=== PATIENT | male | born 1940 | race African-American/Black ===

== ENCOUNTER 2016-11-18 00:27 | Inpatient (IN) | payer MEDICARE ==
--- NOTE | ~2016-11-18 | CN ---
Consultation Report [facility] [address] [place]. [address] NAME: KASHIF DUARTE : 38 STATUS : ADM IN PAT#: [id number] AGE: 76 ADM/REG DATE : 11/18/16 MR#: [id number] REPORT SERV DATE: 11/21/16 DICTATED BY: JM ARANA DATE: 11/20/16 REPORT STATUS : Draft TRANSCRIBED BY: MODL DATE: 11/20/16 INFECTIOUS DISEASE CONSULT DATE OF CONSULTATION: 11/20/2016 REFERRING PHYSICIAN: Neurology and also Jeovanny Poon DO REASON FOR REFERRAL: Evaluation and treatment of meningitis. HISTORY OF PRESENT ILLNESS: The patient is a 76-year-old male. He has history of hypertension, dementia. He came in on 11/18/2016, with several weeks of changing behavior and worrisome observations by his family. He lives alone and has not sought out any help, but I noticed that he seemed to have more trouble with his gait. He was less active, was eating less, losing weight. He passed out while visiting someone with an apparent syncopal episode. He had gastrointestinal symptoms that made him very sick with diarrhea and nausea in late October, so he was brought in. He appeared to be nontoxic. His temperature was normal. White blood cell count was normal. Workup was then ensued directed by Neurology. He has had normal imaging of his brain including MRI or not normal but nothing acute but he does have changes of atrophy as would be expected at his age. Today, a lumbar puncture was performed and it showed 26 red cells, 269 white cells, 49% segs, 34% lymphocytes, 17% monos, glucose of 15 with a serum at same time in the high 100s and a protein is 64.8. Special stains have been ordered and are pending. The patient at present states he feels fine, does not feel sick at all. He has no headache. He has had no acute deterioration in neurological function in any way since he arrived. He is a [place] of [place], [place] but he has lived in [place] for many years. 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 He has no animals or pets. He is not around livestock. He has not traveled outside this area and has not been around anyone who has been sick and has not eaten any foods that he was suspicious of being bad. He does eat sandwiches including those made with cold cuts and cheese from local restaurants and markets. PAST MEDICAL HISTORY: Otherwise unremarkable. MEDICATIONS: He is on no antimicrobials. ALLERGIES: NO KNOWN ANTIMICROBIAL ALLERGIES. SOCIAL HISTORY: He is retired, single, nonsmoker. No history of alcohol or substance abuse. FAMILY HISTORY: Noncontributory. PHYSICAL EXAMINATION: GENERAL: A nontoxic, elderly male, in no acute distress. He is alert and oriented x3. VITAL SIGNS: Temperature is 98.1, pulse 70, respirations 16, blood pressure 148/70, and Consultation Report [address] [address] NAME: KASHIF DUARTE : 38 STATUS : ADM IN [facility]#: [id number] AGE: 76 ADM/REG DATE : 11/18/16 MR#: [id number] REPORT SERV DATE: 11/21/16 DICTATED BY: JM ARANA DATE: 11/20/16 REPORT STATUS : Draft TRANSCRIBED BY: HILARIO DATE: 11/20/16 weight 86 kg. HEENT: Sclerae are clear. Pupils are equal, round, and reactive to light and accommodation. There are no oropharyngeal lesions. NECK: Supple without meningeal signs or lymphadenopathy. LUNGS: Clear. HEART: Regular rate and rhythm. ABDOMEN: Soft, nontender. Positive bowel sounds. No masses or hepatosplenomegaly. EXTREMITIES: Without clubbing, cyanosis, or edema. No swollen, red, or hot joints. SKIN: No skin lesions or rashes. LABORATORY DATA: White count 5.4, hematocrit 34, platelets 176, unremarkable differential on the white blood cell count. Sedimentation rate 16. BUN and creatinine 15 and 1.02. Liver function tests shortly after admission within normal limits. 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 It is possible that this could still be listeria. I would be more concerned about an indolent cause like cryptococcus, syphilis, tuberculosis etc. He has no obvious exposures in the past to the latter. RECOMMENDATIONS: 1. We will hold antibiotics for the moment. We will obtain the results of Gram stain, Angela ink, AFB within the next 1-2 hours, those will be called to me. 2. If any ink is positive, we would initiate lipid complex amphotericin. If it is negative, we would probably treat empirically for listeria with ampicillin. 3. Finally, I will follow the patient with you. I appreciate very much your consulting on this patient. LISA Jm Arana M.D. / [id number] CC: Jeovanny Poon,
--- NOTE | ~2016-11-18 | IDS ---
Interim Discharge Summary [facility] [address] [place]. 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 Patient says he wanted to see the security compliance engineer after I offered. OBJECTIVE: VITAL SIGNS: Blood pressure 120/50, saturating 96% on room air, respirations 18, pulse 82, temp 99.5. GENERAL: No acute distress. HEENT: PERRLA. No scleral icterus. CARDIOVASCULAR: Regular rate and rhythm. No murmur. RESPIRATORY: Decreased breath sounds, bibasilar. Otherwise, no wheezes, no crackles. ABDOMEN: Nontender, nondistended. Positive bowel sounds. EXTREMITIES: No edema. No ecchymosis. NEURO: GCS 15. A and O x4/4. PSYCH: Anxious, tearful. LABORATORY DATA: Today, he has a white count of 7.6 from 5.4; hemoglobin 10.7 from 11; and platelets 152,000 from 137 from 152. Sodium 140, potassium 3.5, chloride 109, bicarb 20, creatinine 1.31 from 1.54 from 1.20. Glucose 103. Mag 1.4. negative. RPR negative. Cryptococcal antigen positive titer 1:160. Blood cultures, no growth to date. Strep pneumo. CSF had over 250 white blood cells and cerebrospinal fluid. INTERIM DISCHARGE SUMMARY ASSESSMENT AND PLAN: 76-year-old male with known history of hypertension, dementia, came in on 11/18/2016, with several weeks of change in behavior and worrisome observation, visited someone who apparently had gastrointestinal symptoms. The patient had a lumbar puncture after an MRI that showed possible multiple sclerosis-like changes resulting in a lumbar puncture for oligoclonal banding rule out, and surprisingly, had 269 white blood cells, 49% segs, 34% lymphocytes, glucose of 15, high protein of 64.8. His Angela ink was negative, but his cryptococcal antigen was positive. As a result, he was started on amphotericin with flucytosine. Likely, he will need two to six weeks of induction of ampho and then possible with concomitant flucytosine; defer to Infectious Disease if they want to do p.o. Diflucan. Afterwards, we would defer to their management. The patient did not have a stroke. His issues with vertigo and ataxia have improved. Could not receive gadolinium contrast MRI initially because of his acute kidney injury. He has end-stage renal disease in his family, likely it is just chronic kidney disease. While he is on amphotericin, we will continue his low rate lactated Ringer's. The patient is a bit tearful with burden of cryptococcal meningitis. As a result, we will have security compliance engineer evaluate the patient for possible treatment of acute stress disorder that hopefully will resolve. If it does not, consider possible psychiatric referral. We will get a PICC. Hopefully, can be discharged soon with a plan for antibiotics per Infectious Disease. Interim Discharge Summary [address] [address] NAME: KASHIF DUARTE : 38 STATUS : ADM IN [facility]#: [id number] AGE: 76 ADM/REG DATE : 11/18/16 MR#: [id number] REPORT SERV DATE: 11/25/16 DICTATED BY: EAL PENNY DATE: 11/25/16 REPORT STATUS : Draft TRANSCRIBED BY: HILARIO DATE: 11/25/16 JAMIE/HILARIO Ela Penny DO / [id number]
--- NOTE | ~2016-11-18 | CN ---
Consultation Report [facility] [address] [place]. [address] NAME: KASHIF GANT : 38 STATUS : ADM IN PAT#: [id number] AGE: 76 ADM/REG DATE : 11/18/16 MR#: [id number] REPORT SERV DATE: 12/04/16 DICTATED BY: SEFERINO NAVARRO DATE: 12/04/16 REPORT STATUS : Draft TRANSCRIBED BY: HILARIO DATE: 12/04/16 DATE OF CONSULTATION: 11/21/2016 REASON FOR CONSULTATION: Coincidental finding of right renal mass. HISTORY OF PRESENT ILLNESS: Mr. Gant is a 76-year-old black gentleman, who was admitted to the hospitalist service with an infectious process. Workup, which included Infectious Disease consult, made the diagnosis of fungal meningitis, for which he will be treated. The patient had a markedly elevated white count, but actually on my interview with him, he looked surprisingly well and treatment was to be undertaken directed at the organism. He had a CT and ultrasound, which showed a small right renal mass, about 2.7 cm, and this was confirmed with a noncontrast CT scan. I have reviewed the scan as well as the ultrasound with Radiology and concur about the presence of the small mass on the right side, the left side is unremarkable. PHYSICAL EXAMINATION: GENERAL: This is a pleasant black gentleman. Alert and oriented, in no distress. CHEST: Clear. ABDOMEN: Negative for tenderness. No masses. No distention. BACK: Negative for CVA tenderness. EXTREMITIES: Unremarkable. GENITALIA: Normal uncircumcised penis, testes, and perineum. RECTAL: Deferred until followup at the office. IMPRESSION: Renal neoplasm, unknown type. PLAN: I impressed upon Mr. Gant, who is anticipating dismissal, that this growth on his kidney could well be a tumor which could be malignant ("cancer") and he did need a followup as soon as reasonably possible. He agreed and did appear to understand what I was telling him. In fact, I did ask that he repeat so that I was convinced he did understand and the need for followup. Thank you very much, we will be available p.r.n. this hospitalization. MS/HILARIO Seferino Navarro M.D. / [id number] CC: Jeovanny Poon DO
--- NOTE | ~2016-11-18 | DS ---
Discharge Summary [facility] [address] [place]. [address] NAME: KASHIF DUARTE : 38 STATUS : DIS IN PAT#: [id number] AGE: 76 ADM/REG DATE : 11/18/16 MR#: [id number] REPORT SERV DATE: 12/05/16 DICTATED BY: ELA PENNY DATE: 12/04/16 REPORT STATUS : Draft TRANSCRIBED BY: MODL DATE: 12/04/16 ADMISSION DATE: 11/18/2016 DISCHARGE DATE: 12/04/2016 HOSPITAL COURSE: A 76-year-old -Turkish male with known history of hypertension, dementia. He came in on 11/18/2016 with several weeks of worrisome behavior as the patient had increased ataxia, vertiginous symptoms, was recently prior to admission visited by someone who had a GI-related symptoms of gastroenteritis. The patient as a result was worked up for possible posterior circulatory stroke with MRI without contrast given the KATY showed eiff-vm-terojlmc atrophy, moderate amount of deep white matter periventricular changes, some signal change around the periventricular lining could overlap with demyelinating process such as long-standing multiple sclerosis. As a result, lumbar puncture was done to rule out an oligoclonal band. He had an opening pressure 14 cm, closing of 9. As a result, the patient had over 260 white blood cells. He eventually had a cryptococcal antigen positivity, cryptococcal meningitis and seen by Dr. Good. He started the patient on IV amphotericin with oral flucytosine. He has completed induction therapy. He will be discharged to follow Dr. Good in month. He will be discharged on Diflucan 400 mg once a day. The patient during the course required a PICC line, which will be discontinued prior to discharge. The patient also had extension edger evaluation as the patient was mildly tearful regarding this possible acute stress disorder. The patient was also seen by Physical Therapy just prior to going home. Will need Home Health for medication assistance. He has some hypokalemia persistently and is placed on scheduled KCl, could have had iatrogenic renal tubular acidosis, would repeat as an outpatient a BMP, and we will just place on KCl 20 mEq p.o. daily. Possibly amphotericin and flucytosine may have caused potassium wasting syndrome, would repeat as an outpatient, as stated this patient was not on KCl coming into the hospital. Consults for Infectious Disease and Neurology and does not appear to have any multiple sclerosis, has symptoms reoccurred despite full treatment of Cryptococcal meningitis. We would repeat MRI. The patient discharge creatinine is 1.17. 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 If were to be chronic kidney disease III as an outpatient, consider referral to Nephrology. All questions were answered. It took well over 30 minutes to do. JAMIE/HILARIO Ela Penny DO / [id number] CC: Ela Penny DO
--- NOTE | ~2016-11-18 | CN ---
Consultation Report [facility] [address] [place]. [address] NAME: KASHIF DUARTE : 38 STATUS : ADM Tenisha PAT#: [id number] AGE: 76 ADM/REG DATE : 11/18/16 MR#: [id number] REPORT SERV DATE: 11/18/16 DICTATED BY: ZENA MAO DATE: 11/18/16 REPORT STATUS : Draft TRANSCRIBED BY: MODL DATE: 11/18/16 NEUROLOGY CONSULTATION DATE OF CONSULTATION: 11/18/2016 REASON FOR CONSULTATION: Acute encephalopathy and TIA. HOSPITALIST: Dr. Rafael Bhatti. HISTORY OF PRESENT ILLNESS: The patient is a 76-year-old male, who came into the hospital with a history of weight loss approximately 15 pounds over the last couple of months. His daughter and niece state that he has just not had an appetite and has not been eating. It has been reported that he is having difficulty swallowing. He also has had vertiginous symptoms, ataxia, dysphagia, and diplopia. In October, his brother . He took it rather hard and immediately after his brother , he came down with a "GI bug". He went to his PCP and he was placed on some sort of antiviral medication and put on a blood pressure medication. Two weeks after that, he went to [facility] where he was diagnosed with vertigo. One week ago, he was at a restaurant and he passed out. Yesterday his niece noticed that he was having trouble getting out of a chair. He almost fell. PAST MEDICAL HISTORY: Dementia and hypertension. PAST SURGICAL HISTORY: Cholecystectomy. MEDICATIONS: Home medication list consists of Coreg 25 mg b.i.d.; HCTZ 12.5 mg q.a.m.; and Antivert 25 mg t.i.d. p.r.n. ALLERGIES: NONE. SOCIAL HISTORY: The patient is . He lives alone. He has four children. 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 He does not smoke, but chews tobacco. Does not use alcohol or illicit drugs. FAMILY HISTORY: His mother from end-stage renal disease. She was diabetic. There is no history on his father. He has 4 sisters and 5 brothers. REVIEW OF SYSTEMS: See HPI. PHYSICAL EXAMINATION: GENERAL/VITAL SIGNS: The patient is a 76-year-old male, who stands 5 feet 8 inches tall and weighs 190 pounds. He is afebrile. Heart rate 61, respiratory rate 18, and O2 saturations on room air 95%, blood pressure 109/57. NEUROLOGIC: The patient is alert. He is oriented to person, place, and time, not Consultation Report [address] [place]. [address] NAME: KASHIF DUARTE : 38 STATUS : ADM Tenisha PAT#: [id number] AGE: 76 ADM/REG DATE : 11/18/16 MR#: [id number] REPORT SERV DATE: 11/18/16 DICTATED BY: ZENA MAO DATE: 11/18/16 REPORT STATUS : Draft TRANSCRIBED BY: HILARIO DATE: 11/18/16 necessarily situation. He is slightly dysarthric. He is able to swallow his lunch without any difficulty. He can follow simple commands. Pupils are 3 mm PERRLA. Cranial nerves are intact. He can move all extremities x4. There is no tremor. No dysmetria. He does have ataxia with xolygf-le-sbmq bilaterally. No pronator drift. Upper extremity strength is 5/5. DTRs in the upper extremities 1+. Lower extremity strength is 4/5. DTRs 2+. Downgoing toes. No decreased sensation in the lower extremities. Vibratory position and temperature sense is intact. He can get out of the bed without any assistance; however, he is ataxic. Romberg untestable. NECK: No carotid bruits, JVD, or thyromegaly. CHEST: Lung sounds are clear. CARDIAC: Regular rate and rhythm. DATA: CBC normal. BMP relatively normal except potassium 3.4, creatinine 1.35, and glucose is 127. TSH normal A1c 5.7. NIH stroke scale is 3. ASSESSMENT/PLAN: 1. Possible stroke as evidenced by ataxia. MRI of the brain and C-spine will be performed without gadolinium and MRA of the head and neck with gadolinium will be done. Echocardiogram with bubble study. PT and OT have been ordered. He will be educated on reducing risk factors. He will be placed on aspirin 325 mg daily and Lipitor 40 mg at bedtime. Case Management has been consulted on rehab placement. 2. Dementia. The patient will be scheduled for an outpatient Neurology office visit to be evaluated for dementia. Thank you again for including us in consultation. We will follow with you. OMAIRAJ/MIGUELL Zena Mao, [facility]- / [id number] CC: Manpreet Osuna Jr, MD Fred Duhon, M.D. Ryan Scott McNamara, M.D.
--- NOTE | ~2016-11-18 | HP ---
History And Physical [facility] [id number] [facility] [place]. [address] NAME: KASHIF DUARTE : 38 STATUS : ADM Tenisha PAT#: [id number] AGE: 76 ADM/REG DATE : 11/18/16 MR#: [id number] REPORT SERV DATE: 11/18/16 DICTATED BY: KATHY KWON DATE: 11/18/16 REPORT STATUS : Draft TRANSCRIBED BY: MODL DATE: 11/18/16 DATE OF ADMISSION: 11/18/2016 CHIEF COMPLAINT: A 76-year-old male presenting with difficulty swallowing, double vision, vertigo, gait disturbance, and falls. HISTORY OF PRESENTING ILLNESS: The patient's history was obtained through an interview with the patient, his daughter, and niece. Really, the patient has been having symptoms on and off for months, but he is one not to complain much and is worried about apparently being a nuisance to his family. He has kept most of his symptoms to himself. But over the last month, it has been very clear that he is having vertigo-like symptoms off and on with lightheadedness and a sensation as if the room is spinning and occasional slight nausea. He finally went to see his primary care physician, Dr. Darren Low recently and it has been noted that he has lost about 15 pounds in the last few months. Then six days ago, he had a syncopal episode that was quite alarming to the family. Over this last week, he has been on meclizine for vertigo symptoms, but without much help. He has had a very poor appetite. He has had occasional constipation. For several weeks, he seems to be stumbling about with gait disturbance. One of the main complaints that he has is difficulty swallowing. It has been going on for at least three or four weeks. He often can eat soft foods without difficulty or liquids without difficulty, but anything with substance seems to get caught up in his throat, but it is not painful, He has also had occasional double vision apparently, but no blurry vision. No dysarthria. No hemiparesis. No headache. No chest pain, no abdominal pain, no shortness of breath. REVIEW OF SYSTEMS: Otherwise, a 14-point review of systems was obtained and was negative. PAST MEDICAL HISTORY: 1. Hypertension. 2. Dementia, but has not been placed on any medications for this. PAST SURGICAL HISTORY: Cholecystectomy. History And Physical [address] [address] NAME: KASHIF DUARTE : 38 STATUS : ADM Tenisha PAT#: [id number] AGE: 76 ADM/REG DATE : 11/18/16 MR#: [id number] REPORT SERV DATE: 11/18/16 DICTATED BY: KATHY KWON DATE: 11/18/16 REPORT STATUS : Draft TRANSCRIBED BY: HILARIO DATE: 11/18/16 ALLERGIES: NO KNOWN DRUG ALLERGIES. SOCIAL HISTORY: No tobacco abuse. No alcohol abuse. Lives in [place], [place], alone. He is . He used to chew tobacco, but has quit. 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 FAMILY HISTORY: Significant for heart disease. Mother with diabetes and end-stage renal disease, on dialysis. CURRENT MEDICATIONS: Include hydrochlorothiazide 12.5 mg p.o. daily, Coreg 25 mg p.o. b.i.d., meclizine p.r.n. PHYSICAL EXAMINATION: VITAL SIGNS: Temperature 98.3, pulse 97, blood pressure 133/83, respiratory rate 18, O2 saturation 98% on room air. GENERAL: A pleasant, cooperative male, in no evidence of distress. NEUROLOGICAL: Cranial nerves 2 through 12 are intact and symmetrical. No nystagmus. The patient has 5/5 strength in upper and lower extremities that is symmetrical. HEENT: Pupils equal, round, and reactive to light. No conjunctival pallor. No scleral icterus. Nares are patent. Oropharynx is clear of obstruction. Dry mucous membranes. NECK: Trachea midline. No thyromegaly. LYMPH: No cervical lymphadenopathy. No supraclavicular lymphadenopathy. RESPIRATORY: Clear to auscultation at bases. No wheezes, no rales, no rhonchi. Normal respiratory effort. CARDIOVASCULAR: Regular rate and rhythm. No murmurs, rubs, or gallops. No extremity edema is appreciated. ABDOMEN: Soft, nontender, nondistended. Normal bowel sounds auscultated throughout. No hepatosplenomegaly. DERMATOLOGICAL: Warm and dry extremities. No pallor. No cyanosis. PSYCHIATRIC: Normal affect. Good mood. Alert and oriented x3. LABORATORY DATA: White blood cell count 6.5, hemoglobin 14, hematocrit 39, platelets 224. Sodium 128, potassium 3.3, chloride 90, bicarb 22, BUN 31, creatinine 1.63, glucose 149, troponin negative, INR 1.2. Liver enzymes within normal limits. Urinalysis negative for infection. STUDIES: 1. Chest CT scan of the brain without contrast shows no acute intracranial process. 2. EKG by my own evaluation shows sinus rhythm, inferior Q-waves. 3. An x-ray of the cervical spine and chest x-ray were reported as negative. ASSESSMENT AND PLAN: 1. Gait disturbance, dysphagia, double vision, and vertigo. We will admit for a transient ischemic attack and stroke evaluation. Place on aspirin. Negative CT scan of the brain was noted. Check an MRI of the brain. Check carotid ultrasound. Check an echocardiogram. Check telemetry. Check fasting lipid panel. Obtain Neurology consult. History And Physical [address] [address] NAME: KASHIF DUARTE : 38 STATUS : ADM Tenisha PAT#: [id number] AGE: 76 ADM/REG DATE : 11/18/16 MR#: [id number] REPORT SERV DATE: 11/18/16 DICTATED BY: KATHY KWON DATE: 11/18/16 REPORT STATUS : Draft TRANSCRIBED BY: HILARIO DATE: 11/18/16 2. Acute kidney injury. Place on IV fluids. Hold hydrochlorothiazide. 3. Dementia. KPL/MODL Kathy Kwon M.D. / [id number] CC: Marin Johnson M.D.
--- NOTE | ~2016-11-18 | IDS ---
Interim Discharge Summary [facility] [address] [place]. [address] NAME: KASHIF DUARTE : 38 STATUS : ADM IN PAT#: [id number] AGE: 76 ADM/REG DATE : 11/18/16 MR#: [id number] REPORT SERV DATE: 12/02/16 DICTATED BY: ARTHUR SALEH DATE: 12/02/16 REPORT STATUS : Draft TRANSCRIBED BY: MODL DATE: 12/02/16 ADMISSION DATE: 11/18/2016 DISCHARGE DATE: Please see admission H and P from Dr. Francis Senior on 11/18/2016, and interim discharge summary from Dr. Jeovanny Poon on 11/25/2016. REASON FOR ADMISSION: This is a 76-year-old male, who presented with difficulty swallowing, double vision, vertigo, gait disturbance, and falls. INTERIM DISCHARGE DIAGNOSES: 1. Cryptococcal meningitis. Etiology unclear. 2. Possible MS. 3. Dementia. 4. Electrolyte abnormalities. 5. Acute kidney injury on chronic kidney disease. 6. Anemia. 7. Hypertension. HOSPITAL COURSE: I took over the patient's care on 11/26/2016. The patient has not had any status changes over the week other than some electrolyte abnormalities associated with his amphotericin B infusion. He is here at the hospital receiving a 2-week course of amphotericin B and flucytosine for his cryptococcal meningitis. He is now on day 13 of 14 and should be able to discharge either late Friday12/03/2016, or early Friday12/04/2016. Potassium has been low at times this week. We have been replacing per electrolyte protocol. Currently his potassium this morning was 3.2, and it has again been replaced per protocol. CURRENT MEDICATIONS: 1. Amphotericin B 50 mg IV daily. 2. Atorvastatin 40 mg p.o. at bedtime. 3. Carvedilol 12.5 mg p.o. b.i.d. 4. Flucytosine 2000 mg p.o. q.6 hours. 5. Mag-Ox 800 mg p.o. t.i.d. 6. Potassium chloride 20 mEq p.o. b.i.d. 7. Sodium bicarb 1300 mg p.o. b.i.d. 8. Hydralazine 25 mg p.o. t.i.d. CURRENT PLAN: The patient is to complete his amphotericin B infusion which will be sometime tomorrow and then the patient to discharge home after that. EDUARDO/HILARIO Arthur Ocampo Interim Discharge Summary [address] [place]. [address] NAME: KASHIF DUARTE : 38 STATUS : ADM IN PAT#: [id number] AGE: 76 ADM/REG DATE : 11/18/16 MR#: [id number] REPORT SERV DATE: 12/02/16 DICTATED BY: ARTHUR SALEH DATE: 12/02/16 REPORT STATUS : Draft TRANSCRIBED BY: HILARIO DATE: 12/02/16 KIRA Saleh / [id number] CC: Marin Johnson DO Mark Anderson, M.D. Louann L. Johnson, [facility]
[2016-11-18] MEDS ORDERED: MICROZIDE PO (00:53)
[2016-11-18] MEDS ORDERED: MCZ25 PO (00:54)
[2016-11-18] MEDS ORDERED: COREG25 PO (00:58)
[2016-11-18 06:21] LABS: BASOPHILS 0.3 %; BASOPHILS ABSOLUTE 0.02 10/3/uL (0.0-0.16); EOSINOPHILS 4.4 %; EOSINOPHILS ABSOLUTE 0.25 10/3/uL (0.0-0.53); HEMATOCRIT 34.4 % (40.0-51.0); HEMOGLOBIN 12.5 g/dL (13.6-17.8); IMMATURE GRANULOCYTES 0.2 %; IMMATURE GRANULOCYTES ABSOLUTE 0.01 10/3/uL (0.0-0.11); LYMPHOCYTES 22.5 %; LYMPHOCYTES ABSOLUTE 1.29 10/3/uL (0.67-4.30); MEAN CORPUS HGB CONC 36.3 g/dL (32.0-36.0); MEAN CORPUSCULAR HEMOGLOB 30.8 pg (26.0-34.0); MEAN CORPUSCULAR VOLUME 84.7 fL (80-100); MEAN PLATELET VOLUME 9.2 fL (9.2-13.0); MONOCYTES ABSOLUTE 0.69 10/3/uL (0.21-1.20); NEUTROPHILS 60.6 %; NEUTROPHILS ABSOLUTE 3.47 10/3/uL (2.02-8.40); PLATELET COUNT 204 10/3/uL (150-400); RBC DISTRIBUTION WIDTH 12.6 % (12.0-16.0); RED CELL COUNT 4.06 10/6/uL (4.7-6.1); WHITE BLOOD CELLS 5.7 10/3/uL (4.5-10.5)
[2016-11-18 06:29] LABS: A/G RATIO 1.2 (0.7-1.9); ALBUMIN 3.6 G/DL (3.5-5.0); ALKALINE PHOSPHATASE 48 U/L (45-117); BUN (BLOOD UREA NITROGEN) 25 MG/DL (6-23); CALCIUM, SERUM 8.9 MG/DL (8.5-10.4); CHLORIDE, SERUM 101 MMOL/L (96-112); CHOL/HDL RATIO(NOT ORDER) 2.8 (0-5); CHOLESTEROL 113 MG/DL (< 200); CK-MB 0.7 NG/ML; CO2 (CARBON DIOXIDE) 25 MMOL/L (24-34); CPK 83 U/L (0-200); CREATININE 1.35 MG/DL (0.70-1.30); GFR AFRICAN AMERICAN 58 ML/MIN (>=60); GFR NON AFRICAN AMERICAN 50 ML/MIN (>=60); GLUCOSE, SERUM 127 MG/DL (60-99); HDL CHOLESTEROL 40 MG/DL (> 39); LDL CHOLESTEROL 58 MG/DL (< 130); MANUAL DIFF NO %; NON-HDL CHOLESTEROL 73 MG/DL (< 160); POTASSIUM, SERUM 3.4 MMOL/L (3.5-5.3); SGOT(AST) 12 U/L (5-40); SGPT(ALT) 23 U/L (5-65); SODIUM, SERUM 137 MMOL/L (135-148); TOTAL PROTEIN 6.6 G/DL (6.0-8.5); TRIGLYCERIDE 75 MG/DL (< 150); TROPONIN I <0.02 NG/ML (<0.05)
[2016-11-18 07:07] LABS: B NATRIURETIC PEPTIDE (BNP) 20.4 PG/ML (< 100.0)
[2016-11-18 07:58] LABS: GLYCOHEMOGLOBIN (HbA1c) 5.7 % (4.7-6.1)
[2016-11-19 06:14] LABS: ALBUMIN 3.3 G/DL (3.5-5.0); ALKALINE PHOSPHATASE 46 U/L (45-117); BUN (BLOOD UREA NITROGEN) 19 MG/DL (6-23); CALCIUM, SERUM 8.6 MG/DL (8.5-10.4); CHLORIDE, SERUM 104 MMOL/L (96-112); CO2 (CARBON DIOXIDE) 23 MMOL/L (24-34); CREATININE 1.15 MG/DL (0.70-1.30); DIRECT BILIRUBIN 0.2 MG/DL (0.0-0.4); FOLATE 15.4 NG/ML (>5.2); GFR AFRICAN AMERICAN 70 ML/MIN (>=60); GFR NON AFRICAN AMERICAN 61 ML/MIN (>=60); GLUCOSE, SERUM 98 MG/DL (60-99); INDIRECT BILIRUBIN(NOT ORDER) 0.7 MG/DL (0.1-0.9); POTASSIUM, SERUM 3.4 MMOL/L (3.5-5.3); SGOT(AST) 10 U/L (5-40); SGPT(ALT) 18 U/L (5-65); SODIUM, SERUM 137 MMOL/L (135-148); TOTAL BILIRUBIN 0.9 MG/DL (0-1.2); TOTAL PROTEIN 6.2 G/DL (6.0-8.5)
[2016-11-20 09:51] LABS: BASOPHILS 0.6 %; BASOPHILS ABSOLUTE 0.03 10/3/uL (0.0-0.16); EOSINOPHILS 5.8 %; EOSINOPHILS ABSOLUTE 0.31 10/3/uL (0.0-0.53); HEMOGLOBIN 12.2 g/dL (13.6-17.8); IMMATURE GRANULOCYTES 0.2 %; IMMATURE GRANULOCYTES ABSOLUTE 0.01 10/3/uL (0.0-0.11); LYMPHOCYTES ABSOLUTE 1.34 10/3/uL (0.67-4.30); MEAN CORPUS HGB CONC 35.9 g/dL (32.0-36.0); MEAN CORPUSCULAR HEMOGLOB 30.5 pg (26.0-34.0); MONOCYTES 6.7 %; MONOCYTES ABSOLUTE 0.36 10/3/uL (0.21-1.20); NEUTROPHILS 61.7 %; NEUTROPHILS ABSOLUTE 3.32 10/3/uL (2.02-8.40); PLATELET COUNT 176 10/3/uL (150-400); RBC DISTRIBUTION WIDTH 12.4 % (12.0-16.0); WHITE BLOOD CELLS 5.4 10/3/uL (4.5-10.5)
[2016-11-20 09:54] LABS: INTERNATIONAL NORMAL RATI 1.3 UNITS (-); MANUAL DIFF NO %; PROTIME (NOT ORD) 16.1 SEC (12.0-14.5)
[2016-11-20 09:55] LABS: PARTIAL THROMBO TIME 32.5 SEC (22.5-37.2)
[2016-11-20 10:01] LABS: CHLORIDE, SERUM 103 MMOL/L (96-112); CO2 (CARBON DIOXIDE) 25 MMOL/L (24-34); CREATININE 1.02 MG/DL (0.70-1.30); GFR AFRICAN AMERICAN 81 ML/MIN (>=60); GFR NON AFRICAN AMERICAN 70 ML/MIN (>=60); PHOSPHORUS, SERUM 2.6 MG/DL (2.5-4.5); POTASSIUM, SERUM 3.9 MMOL/L (3.5-5.3); SODIUM, SERUM 138 MMOL/L (135-148)
[2016-11-20 10:03] LABS: BUN (BLOOD UREA NITROGEN) 15 MG/DL (6-23)
[2016-11-20 10:04] LABS: C-REACTIVE PROTEIN 2.9 MG/L (<8.0); GLUCOSE, SERUM 123 MG/DL (60-99); RHEUMATOID FACTOR QUANT 10 IU/ML (0-15)
[2016-11-20 10:35] LABS: SED RATE 16 MM/HR (0-15)
[2016-11-20 11:39] LABS: GLUCOSE CSF 15 MG/DL (45-70); TOTAL PROTEIN, CSF 64.8 MG/DL (15-45)
[2016-11-20 12:07] LABS: CSF APPEARANCE (NOT ORD) CLEAR (CLEAR); CSF BASO 0 % (NO REF RANGE); CSF COLOR (NOT ORD) COLORLESS (COLORLESS); CSF EOS 0 % (0-1); CSF LYMPH (NOT ORD) 34 % (28-96); CSF MONO 17 % (16-56); CSF RBC (NOT ORD) 26 MM3 (NO REFERENCE); CSF SEGS (NOT ORD) 49 % (0-7); CSF WBC (NOT ORD) 269 /uL (0-10); CSF XANTHROCHROMIA NEG (NEG)
[2016-11-20 12:28] LABS: ANA TITER <1:40 TITER
[2016-11-20 16:45] LABS: PROCALCITONIN < 0.05 ng/mL (<0.5)
[2016-11-20 17:42] LABS: C-REACTIVE PROTEIN < 2.9 MG/L (<8.0)
[2016-11-21 13:15] LABS: ANTI SS-A NEGATIVE (NEGATIVE); ANTI SS-B NEGATIVE (NEGATIVE)
[2016-11-21 14:23] LABS: BASOPHILS 0.6 %; BASOPHILS ABSOLUTE 0.03 10/3/uL (0.0-0.16); EOSINOPHILS 4.9 %; EOSINOPHILS ABSOLUTE 0.26 10/3/uL (0.0-0.53); HEMATOCRIT 33.5 % (40.0-51.0); HEMOGLOBIN 11.9 g/dL (13.6-17.8); IMMATURE GRANULOCYTES 0.6 %; IMMATURE GRANULOCYTES ABSOLUTE 0.03 10/3/uL (0.0-0.11); LYMPHOCYTES 11.5 %; LYMPHOCYTES ABSOLUTE 0.61 10/3/uL (0.67-4.30); MEAN CORPUS HGB CONC 35.5 g/dL (32.0-36.0); MEAN CORPUSCULAR HEMOGLOB 30.6 pg (26.0-34.0); MEAN CORPUSCULAR VOLUME 86.1 fL (80-100); MEAN PLATELET VOLUME 9.4 fL (9.2-13.0); MONOCYTES 7.1 %; MONOCYTES ABSOLUTE 0.38 10/3/uL (0.21-1.20); NEUTROPHILS 75.3 %; NEUTROPHILS ABSOLUTE 4.01 10/3/uL (2.02-8.40); PLATELET COUNT 163 10/3/uL (150-400); RBC DISTRIBUTION WIDTH 12.8 % (12.0-16.0); RED CELL COUNT 3.89 10/6/uL (4.7-6.1); WHITE BLOOD CELLS 5.3 10/3/uL (4.5-10.5)
[2016-11-21 14:24] LABS: MANUAL DIFF NO %
[2016-11-21 14:39] LABS: BUN (BLOOD UREA NITROGEN) 16 MG/DL (6-23); CALCIUM, SERUM 8.5 MG/DL (8.5-10.4); CHLORIDE, SERUM 105 MMOL/L (96-112); CO2 (CARBON DIOXIDE) 27 MMOL/L (24-34); CREATININE 1.46 MG/DL (0.70-1.30); GFR AFRICAN AMERICAN 53 ML/MIN (>=60); GFR NON AFRICAN AMERICAN 45 ML/MIN (>=60); GLUCOSE, SERUM 98 MG/DL (60-99); PHOSPHORUS, SERUM 2.7 MG/DL (2.5-4.5); POTASSIUM, SERUM 4.1 MMOL/L (3.5-5.3); SODIUM, SERUM 139 MMOL/L (135-148)
[2016-11-22 08:56] LABS: BUN (BLOOD UREA NITROGEN) 16 MG/DL (6-23); CALCIUM, SERUM 8.5 MG/DL (8.5-10.4); CHLORIDE, SERUM 103 MMOL/L (96-112); CO2 (CARBON DIOXIDE) 24 MMOL/L (24-34); GFR AFRICAN AMERICAN 67 ML/MIN (>=60); GFR NON AFRICAN AMERICAN 58 ML/MIN (>=60); PHOSPHORUS, SERUM 2.8 MG/DL (2.5-4.5); POTASSIUM, SERUM 3.4 MMOL/L (3.5-5.3); SODIUM, SERUM 137 MMOL/L (135-148)
[2016-11-22 08:58] LABS: GLUCOSE, SERUM 121 MG/DL (60-99)
[2016-11-22 08:59] LABS: BASOPHILS 0.3 %; BASOPHILS ABSOLUTE 0.02 10/3/uL (0.0-0.16); EOSINOPHILS 3.6 %; EOSINOPHILS ABSOLUTE 0.23 10/3/uL (0.0-0.53); HEMATOCRIT 33.3 % (40.0-51.0); HEMOGLOBIN 12.1 g/dL (13.6-17.8); IMMATURE GRANULOCYTES 0.2 %; IMMATURE GRANULOCYTES ABSOLUTE 0.01 10/3/uL (0.0-0.11); LYMPHOCYTES 7.3 %; LYMPHOCYTES ABSOLUTE 0.46 10/3/uL (0.67-4.30); MEAN CORPUS HGB CONC 36.3 g/dL (32.0-36.0); MEAN CORPUSCULAR HEMOGLOB 30.9 pg (26.0-34.0); MEAN CORPUSCULAR VOLUME 85.2 fL (80-100); MEAN PLATELET VOLUME 9.1 fL (9.2-13.0); MONOCYTES 11.1 %; NEUTROPHILS 77.5 %; NEUTROPHILS ABSOLUTE 4.91 10/3/uL (2.02-8.40); PLATELET COUNT 147 10/3/uL (150-400); RBC DISTRIBUTION WIDTH 12.5 % (12.0-16.0); RED CELL COUNT 3.91 10/6/uL (4.7-6.1); WHITE BLOOD CELLS 6.3 10/3/uL (4.5-10.5)
[2016-11-22 09:00] LABS: MANUAL DIFF NO %
[2016-11-22 17:57] LABS: VDRL, CSF Non Reactive (NR)
[2016-11-22 18:14] LABS: ANGIOTENSIN-CONVERTING ENZYME 12 U/L (4-60)
[2016-11-22 20:59] LABS: THYROGLOBULIN AUTO ANTIBODY <0.9 IU/mL (0.0-4.0); THYROID PEROXIDASE AUTO AB 0.4 IU/mL (0.0-9.0)
[2016-11-22 23:30] LABS: ANCA <1:20 (()); MYELOPEROXIDASE ANTIBODY <0.2 AI (<1.0); PROTEINASE 3 ANTIBODY <0.2 AI (<1.0)
[2016-11-23 06:56] LABS: BASOPHILS 0.3 %; BASOPHILS ABSOLUTE 0.02 10/3/uL (0.0-0.16); EOSINOPHILS 3.1 %; HEMATOCRIT 32.6 % (40.0-51.0); HEMOGLOBIN 11.8 g/dL (13.6-17.8); IMMATURE GRANULOCYTES 0.3 %; IMMATURE GRANULOCYTES ABSOLUTE 0.02 10/3/uL (0.0-0.11); LYMPHOCYTES 11.5 %; LYMPHOCYTES ABSOLUTE 0.74 10/3/uL (0.67-4.30); MEAN CORPUS HGB CONC 36.2 g/dL (32.0-36.0); MEAN CORPUSCULAR HEMOGLOB 30.9 pg (26.0-34.0); MEAN CORPUSCULAR VOLUME 85.3 fL (80-100); MEAN PLATELET VOLUME 9.5 fL (9.2-13.0); MONOCYTES 13.9 %; MONOCYTES ABSOLUTE 0.89 10/3/uL (0.21-1.20); NEUTROPHILS 70.9 %; NEUTROPHILS ABSOLUTE 4.54 10/3/uL (2.02-8.40); PLATELET COUNT 152 10/3/uL (150-400); RBC DISTRIBUTION WIDTH 12.6 % (12.0-16.0); RED CELL COUNT 3.82 10/6/uL (4.7-6.1); WHITE BLOOD CELLS 6.4 10/3/uL (4.5-10.5)
[2016-11-23 07:01] LABS: ALKALINE PHOSPHATASE 44 U/L (45-117); BUN (BLOOD UREA NITROGEN) 21 MG/DL (6-23); CALCIUM, SERUM 8.9 MG/DL (8.5-10.4); CHLORIDE, SERUM 107 MMOL/L (96-112); CO2 (CARBON DIOXIDE) 22 MMOL/L (24-34); CREATININE 1.54 MG/DL (0.70-1.30); GFR AFRICAN AMERICAN 49 ML/MIN (>=60); GFR NON AFRICAN AMERICAN 43 ML/MIN (>=60); GLOBULIN 3.1 G/DL (2.5-4.1); GLUCOSE, SERUM 102 MG/DL (60-99); POTASSIUM, SERUM 3.8 MMOL/L (3.5-5.3); SGOT(AST) 14 U/L (5-40); SGPT(ALT) 25 U/L (5-65); SODIUM, SERUM 139 MMOL/L (135-148); TOTAL BILIRUBIN 1.4 MG/DL (0-1.2); TOTAL PROTEIN 6.1 G/DL (6.0-8.5)
[2016-11-23 07:05] LABS: MANUAL DIFF NO %
[2016-11-23 09:19] LABS: ALBUMIN INDEX 10.5 ratio (0.0-9.0); CSF IGG/ALBUMIN RATIO 0.22 ratio (0.09-0.25); CSF OLIGOCLONAL BANDS Positive (NEG); CSF OLIGOCLONAL BANDS NUMBER 20 Bands (0-1); IMMUNOGLOBULIN G, SERUM 902 mg/dL (768-1632)
[2016-11-23 10:50] LABS: IGG INDEX 0.97 (0.25-0.75)
[2016-11-24 06:52] LABS: HEMATOCRIT 29.6 % (40.0-51.0); MEAN CORPUS HGB CONC 37.2 g/dL (32.0-36.0); MEAN CORPUSCULAR HEMOGLOB 31.4 pg (26.0-34.0); MEAN CORPUSCULAR VOLUME 84.6 fL (80-100); MEAN PLATELET VOLUME 9.5 fL (9.2-13.0); PLATELET COUNT 137 10/3/uL (150-400); RBC DISTRIBUTION WIDTH 12.9 % (12.0-16.0); WHITE BLOOD CELLS 5.4 10/3/uL (4.5-10.5)
[2016-11-24 06:54] LABS: MANUAL DIFF YES %
[2016-11-24 07:03] LABS: BUN (BLOOD UREA NITROGEN) 18 MG/DL (6-23); CALCIUM, SERUM 8.8 MG/DL (8.5-10.4); CHLORIDE, SERUM 109 MMOL/L (96-112); CO2 (CARBON DIOXIDE) 20 MMOL/L (24-34); GFR AFRICAN AMERICAN 55 ML/MIN (>=60); GFR NON AFRICAN AMERICAN 48 ML/MIN (>=60); GLUCOSE, SERUM 101 MG/DL (60-99); PHOSPHORUS, SERUM 3.1 MG/DL (2.5-4.5); POTASSIUM, SERUM 3.7 MMOL/L (3.5-5.3); SODIUM, SERUM 139 MMOL/L (135-148)
[2016-11-24 08:17] LABS: BAND NEUTROPHILS 5 %; EOSINOPHILS 7 %; EOSINOPHILS ABSOLUTE (CALC) 0.38 10/3/uL (0.0-0.53); LYMPHOCYTES 11 %; LYMPHOCYTES ABSOLUTE (CALC) 0.59 10/3/uL (0.67-4.30); MONOCYTES 16 %; MONOCYTES ABSOLUTE (CALC) 0.86 10/3/uL (0.21-1.20); NEUTROPHILS ABSOLUTE (CALC) 3.56 10/3/uL (2.02-8.40); PLATELET ESTIMATE SLT DEC (ADEQUATE); SEGMENTED NEUTROPHIL (0) 61 %; TOTAL NUCLEATED CELLS 100
[2016-11-24 08:18] LABS: HELMET CELLS OCC (0-2/OIF); POLYCHROMASIA 1+ (2-5/OIF) (0-1/OIF); TEARDROP SHAPED RBCS OCC (0-2/OIF); TOXIC GRANULATION SLT
[2016-11-25 04:31] LABS: BASOPHILS 0.4 %; BASOPHILS ABSOLUTE 0.03 10/3/uL (0.0-0.16); EOSINOPHILS 3.6 %; EOSINOPHILS ABSOLUTE 0.27 10/3/uL (0.0-0.53); HEMATOCRIT 30.1 % (40.0-51.0); HEMOGLOBIN 10.7 g/dL (13.6-17.8); IMMATURE GRANULOCYTES 0.3 %; IMMATURE GRANULOCYTES ABSOLUTE 0.02 10/3/uL (0.0-0.11); LYMPHOCYTES 8.6 %; LYMPHOCYTES ABSOLUTE 0.65 10/3/uL (0.67-4.30); MANUAL DIFF NO %; MEAN CORPUS HGB CONC 35.5 g/dL (32.0-36.0); MEAN CORPUSCULAR HEMOGLOB 30.6 pg (26.0-34.0); MEAN PLATELET VOLUME 9.4 fL (9.2-13.0); MONOCYTES 17.2 %; NEUTROPHILS 69.9 %; NEUTROPHILS ABSOLUTE 5.31 10/3/uL (2.02-8.40); PLATELET COUNT 152 10/3/uL (150-400); RBC DISTRIBUTION WIDTH 12.7 % (12.0-16.0); WHITE BLOOD CELLS 7.6 10/3/uL (4.5-10.5)
[2016-11-25 04:59] LABS: CALCIUM, SERUM 8.4 MG/DL (8.5-10.4); CHLORIDE, SERUM 109 MMOL/L (96-112); CO2 (CARBON DIOXIDE) 20 MMOL/L (24-34); CREATININE 1.31 MG/DL (0.70-1.30); GFR AFRICAN AMERICAN 60 ML/MIN (>=60); GFR NON AFRICAN AMERICAN 52 ML/MIN (>=60); GLUCOSE, SERUM 103 MG/DL (60-99); PHOSPHORUS, SERUM 3.3 MG/DL (2.5-4.5); POTASSIUM, SERUM 3.5 MMOL/L (3.5-5.3); SODIUM, SERUM 140 MMOL/L (135-148)
[2016-11-25 05:02] LABS: BUN (BLOOD UREA NITROGEN) 14 MG/DL (6-23)
[2016-11-25 12:12] LABS: INTERNATIONAL NORMAL RATI 1.4 UNITS (-); PROTIME (NOT ORD) 17.4 SEC (12.0-14.5)
[2016-11-26 05:41] LABS: BASOPHILS 0.3 %; BASOPHILS ABSOLUTE 0.02 10/3/uL (0.0-0.16); EOSINOPHILS 2.4 %; EOSINOPHILS ABSOLUTE 0.18 10/3/uL (0.0-0.53); HEMATOCRIT 30.5 % (40.0-51.0); HEMOGLOBIN 10.8 g/dL (13.6-17.8); IMMATURE GRANULOCYTES 0.3 %; IMMATURE GRANULOCYTES ABSOLUTE 0.02 10/3/uL (0.0-0.11); LYMPHOCYTES 11.3 %; LYMPHOCYTES ABSOLUTE 0.83 10/3/uL (0.67-4.30); MEAN CORPUS HGB CONC 35.4 g/dL (32.0-36.0); MEAN CORPUSCULAR HEMOGLOB 30.4 pg (26.0-34.0); MEAN CORPUSCULAR VOLUME 85.9 fL (80-100); MEAN PLATELET VOLUME 9.1 fL (9.2-13.0); MONOCYTES 11.3 %; MONOCYTES ABSOLUTE 0.83 10/3/uL (0.21-1.20); NEUTROPHILS 74.4 %; NEUTROPHILS ABSOLUTE 5.47 10/3/uL (2.02-8.40); PLATELET COUNT 161 10/3/uL (150-400); RBC DISTRIBUTION WIDTH 12.6 % (12.0-16.0); RED CELL COUNT 3.55 10/6/uL (4.7-6.1); WHITE BLOOD CELLS 7.4 10/3/uL (4.5-10.5)
[2016-11-26 05:43] LABS: MANUAL DIFF NO %
[2016-11-26 05:59] LABS: BUN (BLOOD UREA NITROGEN) 10 MG/DL (6-23); CALCIUM, SERUM 8.7 MG/DL (8.5-10.4); CHLORIDE, SERUM 108 MMOL/L (96-112); CO2 (CARBON DIOXIDE) 22 MMOL/L (24-34); CREATININE 1.14 MG/DL (0.70-1.30); GFR AFRICAN AMERICAN 71 ML/MIN (>=60); GFR NON AFRICAN AMERICAN 61 ML/MIN (>=60); GLUCOSE, SERUM 103 MG/DL (60-99); PHOSPHORUS, SERUM 3.4 MG/DL (2.5-4.5); POTASSIUM, SERUM 3.2 MMOL/L (3.5-5.3); SODIUM, SERUM 140 MMOL/L (135-148)
[2016-11-27 03:12] LABS: ALLENS TEST Pos; BE (BASE EXCESS) -2.2 MEQ/L (0 +/- 2.5); CARBOXYHEMOGLOBIN 0.4 % (0-3); HCO3 (ACTUAL BICARBONATE) 20.9 MEQ/L (23-27); INSTRUMENT SERIAL # 8083; METHEMOGLOBIN 0.2 % (0-3); O2 CONTENT 14.7 VOL% (18-24); OPERATOR ID 35190; PCO2 (CO2 TENSION) 30 MMHG (35-45); PO2 (O2 TENSION) 78 MMHG (79-93); SAMPLE Arterial; pH 7.46 (7.37-7.43)
[2016-11-27 04:53] LABS: BASOPHILS 0.3 %; BASOPHILS ABSOLUTE 0.02 10/3/uL (0.0-0.16); EOSINOPHILS 3.9 %; EOSINOPHILS ABSOLUTE 0.27 10/3/uL (0.0-0.53); HEMATOCRIT 28.1 % (40.0-51.0); HEMOGLOBIN 10.1 g/dL (13.6-17.8); IMMATURE GRANULOCYTES 0.3 %; IMMATURE GRANULOCYTES ABSOLUTE 0.02 10/3/uL (0.0-0.11); LYMPHOCYTES 11.6 %; MEAN CORPUS HGB CONC 35.9 g/dL (32.0-36.0); MEAN CORPUSCULAR VOLUME 86.2 fL (80-100); MONOCYTES 16.5 %; MONOCYTES ABSOLUTE 1.14 10/3/uL (0.21-1.20); NEUTROPHILS 67.4 %; NEUTROPHILS ABSOLUTE 4.67 10/3/uL (2.02-8.40); PLATELET COUNT 164 10/3/uL (150-400); RBC DISTRIBUTION WIDTH 12.6 % (12.0-16.0); RED CELL COUNT 3.26 10/6/uL (4.7-6.1); RETICULOCYTE COUNT 1.2 % (0.5-2.5); RETICULOCYTE COUNT ABSOLUTE 40.4 10/3/uL (20.2-119.8); WHITE BLOOD CELLS 6.9 10/3/uL (4.5-10.5)
[2016-11-27 04:58] LABS: MANUAL DIFF NO %
[2016-11-27 05:12] LABS: % IRON SAT 13 % (20-50); BUN (BLOOD UREA NITROGEN) 8 MG/DL (6-23); CALCIUM, SERUM 8.4 MG/DL (8.5-10.4); CHLORIDE, SERUM 109 MMOL/L (96-112); CO2 (CARBON DIOXIDE) 23 MMOL/L (24-34); CREATININE 1.29 MG/DL (0.70-1.30); FERRITIN 338 NG/ML (26-388); GFR AFRICAN AMERICAN 61 ML/MIN (>=60); GFR NON AFRICAN AMERICAN 53 ML/MIN (>=60); GLUCOSE, SERUM 106 MG/DL (60-99); IRON BINDING CAPACITY 237 MCG/DL (250-450); IRON, SERUM 30 MCG/DL (35-150); POTASSIUM, SERUM 3.2 MMOL/L (3.5-5.3); SODIUM, SERUM 141 MMOL/L (135-148)
[2016-11-28 06:40] LABS: BASOPHILS 0.6 %; BASOPHILS ABSOLUTE 0.04 10/3/uL (0.0-0.16); EOSINOPHILS 4.8 %; EOSINOPHILS ABSOLUTE 0.34 10/3/uL (0.0-0.53); HEMATOCRIT 29.2 % (40.0-51.0); HEMOGLOBIN 10.3 g/dL (13.6-17.8); IMMATURE GRANULOCYTES 0.4 %; IMMATURE GRANULOCYTES ABSOLUTE 0.03 10/3/uL (0.0-0.11); LYMPHOCYTES 12.9 %; LYMPHOCYTES ABSOLUTE 0.92 10/3/uL (0.67-4.30); MEAN CORPUS HGB CONC 35.3 g/dL (32.0-36.0); MEAN CORPUSCULAR HEMOGLOB 30.5 pg (26.0-34.0); MEAN CORPUSCULAR VOLUME 86.4 fL (80-100); MONOCYTES 16.1 %; MONOCYTES ABSOLUTE 1.15 10/3/uL (0.21-1.20); NEUTROPHILS 65.2 %; NEUTROPHILS ABSOLUTE 4.66 10/3/uL (2.02-8.40); PLATELET COUNT 187 10/3/uL (150-400); RBC DISTRIBUTION WIDTH 12.8 % (12.0-16.0); RED CELL COUNT 3.38 10/6/uL (4.7-6.1); WHITE BLOOD CELLS 7.1 10/3/uL (4.5-10.5)
[2016-11-28 06:45] LABS: MANUAL DIFF NO %
[2016-11-28 06:52] LABS: BUN (BLOOD UREA NITROGEN) 10 MG/DL (6-23); CALCIUM, SERUM 8.7 MG/DL (8.5-10.4); CHLORIDE, SERUM 108 MMOL/L (96-112); CO2 (CARBON DIOXIDE) 23 MMOL/L (24-34); CREATININE 1.41 MG/DL (0.70-1.30); GFR AFRICAN AMERICAN 55 ML/MIN (>=60); GFR NON AFRICAN AMERICAN 47 ML/MIN (>=60); GLUCOSE, SERUM 111 MG/DL (60-99); POTASSIUM, SERUM 3.5 MMOL/L (3.5-5.3); SODIUM, SERUM 143 MMOL/L (135-148)
[2016-11-28 10:12] LABS: ANTI-DNA FARR TECHNIQUE 1.4 IU/mL (<8.0)
[2016-11-29 08:06] LABS: BASOPHILS 0.5 %; BASOPHILS ABSOLUTE 0.03 10/3/uL (0.0-0.16); EOSINOPHILS 5.2 %; EOSINOPHILS ABSOLUTE 0.34 10/3/uL (0.0-0.53); HEMATOCRIT 29.5 % (40.0-51.0); HEMOGLOBIN 10.5 g/dL (13.6-17.8); IMMATURE GRANULOCYTES 0.3 %; IMMATURE GRANULOCYTES ABSOLUTE 0.02 10/3/uL (0.0-0.11); LYMPHOCYTES 13.4 %; LYMPHOCYTES ABSOLUTE 0.87 10/3/uL (0.67-4.30); MANUAL DIFF NO %; MEAN CORPUS HGB CONC 35.6 g/dL (32.0-36.0); MEAN CORPUSCULAR HEMOGLOB 30.7 pg (26.0-34.0); MEAN CORPUSCULAR VOLUME 86.3 fL (80-100); MEAN PLATELET VOLUME 8.6 fL (9.2-13.0); MONOCYTES 16.6 %; MONOCYTES ABSOLUTE 1.08 10/3/uL (0.21-1.20); NEUTROPHILS ABSOLUTE 4.16 10/3/uL (2.02-8.40); PLATELET COUNT 208 10/3/uL (150-400); RBC DISTRIBUTION WIDTH 12.7 % (12.0-16.0); RED CELL COUNT 3.42 10/6/uL (4.7-6.1); WHITE BLOOD CELLS 6.5 10/3/uL (4.5-10.5)
[2016-11-29 08:16] LABS: BUN (BLOOD UREA NITROGEN) 9 MG/DL (6-23); CALCIUM, SERUM 8.6 MG/DL (8.5-10.4); CHLORIDE, SERUM 107 MMOL/L (96-112); CO2 (CARBON DIOXIDE) 24 MMOL/L (24-34); CREATININE 1.31 MG/DL (0.70-1.30); GFR AFRICAN AMERICAN 60 ML/MIN (>=60); GFR NON AFRICAN AMERICAN 52 ML/MIN (>=60); GLUCOSE, SERUM 107 MG/DL (60-99); PHOSPHORUS, SERUM 3.2 MG/DL (2.5-4.5); POTASSIUM, SERUM 3.4 MMOL/L (3.5-5.3); SODIUM, SERUM 140 MMOL/L (135-148)
[2016-11-30 07:23] LABS: BASOPHILS 0.5 %; BASOPHILS ABSOLUTE 0.03 10/3/uL (0.0-0.16); EOSINOPHILS 4.9 %; EOSINOPHILS ABSOLUTE 0.29 10/3/uL (0.0-0.53); HEMATOCRIT 27.9 % (40.0-51.0); HEMOGLOBIN 9.7 g/dL (13.6-17.8); IMMATURE GRANULOCYTES 0.2 %; IMMATURE GRANULOCYTES ABSOLUTE 0.01 10/3/uL (0.0-0.11); LYMPHOCYTES 17.5 %; LYMPHOCYTES ABSOLUTE 1.03 10/3/uL (0.67-4.30); MEAN CORPUS HGB CONC 34.8 g/dL (32.0-36.0); MEAN CORPUSCULAR HEMOGLOB 30.3 pg (26.0-34.0); MEAN CORPUSCULAR VOLUME 87.2 fL (80-100); MEAN PLATELET VOLUME 8.6 fL (9.2-13.0); MONOCYTES 11.9 %; NEUTROPHILS ABSOLUTE 3.81 10/3/uL (2.02-8.40); PLATELET COUNT 190 10/3/uL (150-400); RBC DISTRIBUTION WIDTH 12.6 % (12.0-16.0); WHITE BLOOD CELLS 5.9 10/3/uL (4.5-10.5)
[2016-11-30 07:24] LABS: MANUAL DIFF NO %
[2016-11-30 07:35] LABS: BUN (BLOOD UREA NITROGEN) 9 MG/DL (6-23); CALCIUM, SERUM 8.3 MG/DL (8.5-10.4); CHLORIDE, SERUM 105 MMOL/L (96-112); CO2 (CARBON DIOXIDE) 24 MMOL/L (24-34); CREATININE 1.22 MG/DL (0.70-1.30); GFR AFRICAN AMERICAN 65 ML/MIN (>=60); GFR NON AFRICAN AMERICAN 56 ML/MIN (>=60); GLUCOSE, SERUM 104 MG/DL (60-99); PHOSPHORUS, SERUM 3.5 MG/DL (2.5-4.5); SODIUM, SERUM 139 MMOL/L (135-148)
[2016-12-01 07:31] LABS: BASOPHILS 0.3 %; BASOPHILS ABSOLUTE 0.02 10/3/uL (0.0-0.16); EOSINOPHILS 4.7 %; EOSINOPHILS ABSOLUTE 0.32 10/3/uL (0.0-0.53); HEMATOCRIT 27.3 % (40.0-51.0); HEMOGLOBIN 9.9 g/dL (13.6-17.8); IMMATURE GRANULOCYTES 0.4 %; IMMATURE GRANULOCYTES ABSOLUTE 0.03 10/3/uL (0.0-0.11); LYMPHOCYTES 10.4 %; LYMPHOCYTES ABSOLUTE 0.71 10/3/uL (0.67-4.30); MEAN CORPUS HGB CONC 36.3 g/dL (32.0-36.0); MEAN CORPUSCULAR HEMOGLOB 30.9 pg (26.0-34.0); MEAN CORPUSCULAR VOLUME 85.3 fL (80-100); MEAN PLATELET VOLUME 8.6 fL (9.2-13.0); MONOCYTES 16.6 %; MONOCYTES ABSOLUTE 1.13 10/3/uL (0.21-1.20); NEUTROPHILS 67.6 %; NEUTROPHILS ABSOLUTE 4.61 10/3/uL (2.02-8.40); PLATELET COUNT 205 10/3/uL (150-400); RBC DISTRIBUTION WIDTH 12.7 % (12.0-16.0); WHITE BLOOD CELLS 6.8 10/3/uL (4.5-10.5)
[2016-12-01 07:34] LABS: MANUAL DIFF NO %
[2016-12-01 07:44] LABS: BUN (BLOOD UREA NITROGEN) 8 MG/DL (6-23); CALCIUM, SERUM 8.4 MG/DL (8.5-10.4); CHLORIDE, SERUM 109 MMOL/L (96-112); CO2 (CARBON DIOXIDE) 24 MMOL/L (24-34); CREATININE 1.16 MG/DL (0.70-1.30); GFR AFRICAN AMERICAN 70 ML/MIN (>=60); GFR NON AFRICAN AMERICAN 60 ML/MIN (>=60); GLUCOSE, SERUM 110 MG/DL (60-99); PHOSPHORUS, SERUM 3.1 MG/DL (2.5-4.5); POTASSIUM, SERUM 3.2 MMOL/L (3.5-5.3); SODIUM, SERUM 143 MMOL/L (135-148)
[2016-12-02 05:06] LABS: BASOPHILS 0.3 %; BASOPHILS ABSOLUTE 0.02 10/3/uL (0.0-0.16); EOSINOPHILS 4.3 %; EOSINOPHILS ABSOLUTE 0.29 10/3/uL (0.0-0.53); HEMATOCRIT 27.7 % (40.0-51.0); HEMOGLOBIN 9.6 g/dL (13.6-17.8); IMMATURE GRANULOCYTES 0.3 %; IMMATURE GRANULOCYTES ABSOLUTE 0.02 10/3/uL (0.0-0.11); LYMPHOCYTES 15.9 %; LYMPHOCYTES ABSOLUTE 1.07 10/3/uL (0.67-4.30); MEAN CORPUS HGB CONC 34.7 g/dL (32.0-36.0); MEAN CORPUSCULAR HEMOGLOB 29.8 pg (26.0-34.0); MEAN PLATELET VOLUME 8.6 fL (9.2-13.0); MONOCYTES 10.6 %; MONOCYTES ABSOLUTE 0.71 10/3/uL (0.21-1.20); NEUTROPHILS 68.6 %; NEUTROPHILS ABSOLUTE 4.61 10/3/uL (2.02-8.40); PLATELET COUNT 194 10/3/uL (150-400); RBC DISTRIBUTION WIDTH 12.4 % (12.0-16.0); RED CELL COUNT 3.22 10/6/uL (4.7-6.1); WHITE BLOOD CELLS 6.7 10/3/uL (4.5-10.5)
[2016-12-02 05:07] LABS: MANUAL DIFF NO %
[2016-12-02 05:11] LABS: BUN (BLOOD UREA NITROGEN) 9 MG/DL (6-23); CALCIUM, SERUM 8.6 MG/DL (8.5-10.4); CHLORIDE, SERUM 106 MMOL/L (96-112); CO2 (CARBON DIOXIDE) 26 MMOL/L (24-34); CREATININE 1.07 MG/DL (0.70-1.30); GFR AFRICAN AMERICAN 77 ML/MIN (>=60); GFR NON AFRICAN AMERICAN 66 ML/MIN (>=60); GLUCOSE, SERUM 102 MG/DL (60-99); PHOSPHORUS, SERUM 3.2 MG/DL (2.5-4.5); POTASSIUM, SERUM 3.2 MMOL/L (3.5-5.3); SODIUM, SERUM 139 MMOL/L (135-148)
[2016-12-03 07:00] LABS: BASOPHILS 0.3 %; BASOPHILS ABSOLUTE 0.02 10/3/uL (0.0-0.16); EOSINOPHILS 4.2 %; EOSINOPHILS ABSOLUTE 0.28 10/3/uL (0.0-0.53); HEMATOCRIT 27.4 % (40.0-51.0); HEMOGLOBIN 9.7 g/dL (13.6-17.8); IMMATURE GRANULOCYTES 0.5 %; IMMATURE GRANULOCYTES ABSOLUTE 0.03 10/3/uL (0.0-0.11); LYMPHOCYTES 10.2 %; LYMPHOCYTES ABSOLUTE 0.68 10/3/uL (0.67-4.30); MEAN CORPUS HGB CONC 35.4 g/dL (32.0-36.0); MEAN CORPUSCULAR HEMOGLOB 30.5 pg (26.0-34.0); MEAN CORPUSCULAR VOLUME 86.2 fL (80-100); MEAN PLATELET VOLUME 8.5 fL (9.2-13.0); MONOCYTES 17.3 %; MONOCYTES ABSOLUTE 1.15 10/3/uL (0.21-1.20); NEUTROPHILS 67.5 %; NEUTROPHILS ABSOLUTE 4.48 10/3/uL (2.02-8.40); PLATELET COUNT 212 10/3/uL (150-400); RBC DISTRIBUTION WIDTH 12.9 % (12.0-16.0); RED CELL COUNT 3.18 10/6/uL (4.7-6.1); WHITE BLOOD CELLS 6.6 10/3/uL (4.5-10.5)
[2016-12-03 07:04] LABS: MANUAL DIFF NO %
[2016-12-03 07:07] LABS: BUN (BLOOD UREA NITROGEN) 11 MG/DL (6-23); CALCIUM, SERUM 8.7 MG/DL (8.5-10.4); CHLORIDE, SERUM 108 MMOL/L (96-112); CO2 (CARBON DIOXIDE) 26 MMOL/L (24-34); CREATININE 1.21 MG/DL (0.70-1.30); GFR AFRICAN AMERICAN 66 ML/MIN (>=60); GFR NON AFRICAN AMERICAN 57 ML/MIN (>=60); GLUCOSE, SERUM 111 MG/DL (60-99); PHOSPHORUS, SERUM 3.3 MG/DL (2.5-4.5); POTASSIUM, SERUM 3.3 MMOL/L (3.5-5.3); SODIUM, SERUM 141 MMOL/L (135-148)
[2016-12-04 05:31] LABS: BASOPHILS 0.3 %; BASOPHILS ABSOLUTE 0.03 10/3/uL (0.0-0.16); EOSINOPHILS 3.4 %; EOSINOPHILS ABSOLUTE 0.31 10/3/uL (0.0-0.53); HEMATOCRIT 28.6 % (40.0-51.0); IMMATURE GRANULOCYTES 0.3 %; IMMATURE GRANULOCYTES ABSOLUTE 0.03 10/3/uL (0.0-0.11); LYMPHOCYTES 12.3 %; LYMPHOCYTES ABSOLUTE 1.13 10/3/uL (0.67-4.30); MEAN CORPUSCULAR HEMOGLOB 30.7 pg (26.0-34.0); MEAN CORPUSCULAR VOLUME 87.7 fL (80-100); MEAN PLATELET VOLUME 8.5 fL (9.2-13.0); MONOCYTES 9.6 %; MONOCYTES ABSOLUTE 0.88 10/3/uL (0.21-1.20); NEUTROPHILS 74.1 %; NEUTROPHILS ABSOLUTE 6.82 10/3/uL (2.02-8.40); PLATELET COUNT 230 10/3/uL (150-400); RBC DISTRIBUTION WIDTH 12.7 % (12.0-16.0); RED CELL COUNT 3.26 10/6/uL (4.7-6.1); WHITE BLOOD CELLS 9.2 10/3/uL (4.5-10.5)
[2016-12-04 05:32] LABS: MANUAL DIFF NO %
[2016-12-04 05:42] LABS: BUN (BLOOD UREA NITROGEN) 12 MG/DL (6-23); CALCIUM, SERUM 9.1 MG/DL (8.5-10.4); CHLORIDE, SERUM 107 MMOL/L (96-112); CO2 (CARBON DIOXIDE) 26 MMOL/L (24-34); CREATININE 1.17 MG/DL (0.70-1.30); GFR AFRICAN AMERICAN 69 ML/MIN (>=60); GFR NON AFRICAN AMERICAN 59 ML/MIN (>=60); GLUCOSE, SERUM 117 MG/DL (60-99); PHOSPHORUS, SERUM 3.4 MG/DL (2.5-4.5); POTASSIUM, SERUM 3.5 MMOL/L (3.5-5.3); SODIUM, SERUM 139 MMOL/L (135-148)
[2016-12-04] MEDS ORDERED: [UNRECOGNIZED DRUG - CODE] IV (10:49)
[2016-12-04] MEDS ORDERED: KLOR-CON20 MEQ PO (10:51)
[2016-12-04] MEDS ORDERED: MAGOX4 PO (10:52)
[2016-12-04] MEDS ORDERED: APRES25 PO (10:53)
[2016-12-04] MEDS ORDERED: LIPITOR40 PO (10:54)
[2016-12-04] MEDS ORDERED: COREG12 PO (10:54)
== END 2016-12-04 11:59 | disposition home health service (06) | DRG 97 ==
LOC: 1SO 00:27
PROVIDERS: Hospitalist; Internal Medicine; Nurse Practitioner; Psychiatry & Neurology Neurology
PROC: 009U3ZZ Drainage of Spinal Canal, Percutaneous Approach (ICD-10-PCS; principal; 2016-11-20)
PROC: B01B1ZZ Fluoroscopy of Spinal Cord using Low Osmolar Contrast (ICD-10-PCS; 2016-11-20)
PROC: 02HV33Z Insertion of Infusion Device into Superior Vena Cava, Percutaneous Approach (ICD-10-PCS; 2016-11-25)
PROC: 4A02X4A Measurement of Cardiac Electrical Activity, Guidance, External Approach (ICD-10-PCS; 2016-11-25)
DX: B45.1 Cerebral cryptococcosis (principal); G93.41 Metabolic encephalopathy; N17.9 Acute kidney failure, unspecified; R13.10 Dysphagia, unspecified; F03.90 Unspecified dementia, unspecified severity, without behavioral disturbance, psychotic disturbance, mood disturbance, and anxiety; D63.1 Anemia in chronic kidney disease; N28.89 Other specified disorders of kidney and ureter; N18.9 Chronic kidney disease, unspecified; E87.6 Hypokalemia; I12.9 Hypertensive chronic kidney disease with stage 1 through stage 4 chronic kidney disease, or unspecified chronic kidney disease; Z79.899 Other long term (current) drug therapy
CPT/HCPCS: 36569; 62270; 70544; 70548; 70551; 72141; 74176; 74230; 76775; 77003; 80048; 80053; 80061; 80076; 82040; 82042; 82140; 82164; 82533; 82550; 82553; 82607; 82728; 82746; 82784; 82784-59; 82805; 82945; 82947; 83036; 83516; 83516-59; 83540; 83550; 83735; 83880; 83916; 84100; 84132; 84145; 84157; 84443; 84484; 85025; 85045; 85610; 85652; 85730; 86039; 86140; 86225; 86235; 86235-59; 86255; 86376; 86403; 86403-59; 86431; 86592; 86695; 86696; 86800; 87015; 87040; 87070; 87102; 87116; 87205; 87210; 87327; 87389; 88112; 89051; 92611-GN; 93005; 97161-GP; 97166-GO; A9270-GY; A9577; C1751; C8929; G8978-CH-GP; G8979-CH-GP; G8980-CH-GP; G8987-CI-GO; G8988-CI-GO; G8989-CI-GO; G8996-CI-GN; G8997-CI-GN; G8998-CI-GN; J0289; J3475; Q9957

== ENCOUNTER 2016-12-06 04:20 | Inpatient (IN) | payer MEDICARE ==
--- NOTE | ~2016-12-06 | DS ---
Discharge Summary [facility] [address] [place]. [address] NAME: KASHIF DUARTE : 38 STATUS : DIS IN PAT#: [id number] AGE: 76 ADM/REG DATE : 12/06/16 MR#: [id number] REPORT SERV DATE: 12/13/16 DICTATED BY: YANELY CHIRINOS DATE: 12/12/16 REPORT STATUS : Draft TRANSCRIBED BY: MODL DATE: 12/12/16 ADMISSION DATE: 12/06/2016 DISCHARGE DATE: 12/12/2016 DISCHARGE DIAGNOSES: 1. Bilateral pleural effusion status post right thoracentesis. 2. Pericardial effusion with the physiology of tamponade status post drain. 3. Recent diagnosis and treatment of the cryptococcal meningitis status post amphotericin treatment, now the patient is on Diflucan. The patient will have followup with Dr. Good. 4. Dementia. 5. Resolved acute kidney injury. 6. Urinary retention on this admission status post Roy catheter. The patient will be followed by Dr. Hannon as an outpatient. 7. Severe protein calorie malnutrition. 8. Renal mass. The patient has identified this problem and Dr. Hannon is following this patient as an outpatient for further evaluation. CONSULTANTS: 1. Ko Good M.D. 2. Alexy Morillo M.D. PROCEDURES: 1. Subxiphoid drainage of pericardial effusion. 2. Thoracentesis. HISTORY OF PRESENT ILLNESS: This is a 76-year-old male patient, who came to the hospital with sudden onset of short of breath right after he was discharged from the hospital a day before. Please see dictated H and P. HOSPITAL COURSE: The patient was admitted to hospital with short of breath, and was identified to have bilateral pleural effusion and also pericardial effusion with the physiology of tamponade. He had an urgent consultation with Dr. Morillo and he did the pericardial drainage. Pericardial biopsy was not showing anything abnormal, it was reactive cell change without any malignancy. The patient had a good drain and observed very well. He was treated for cryptococcal meningitis recently this month. He finished amphotericin therapy and the patient is currently on Diflucan, and the patient will be remained on Diflucan for long-term treatment. The patient will be followed by Dr. Good. During this hospitalization he was found to have urinary retention, Roy catheter was inserted four days ago. At that time, he had a retention about greater than [address] Hannon has been following this patient for renal mass as well. The patient is recommended to get outpatient evaluation for renal mass. Discharge Summary [address] [address] NAME: KASHIF DUARTE : 38 STATUS : DIS IN PAT#: [id number] AGE: 76 ADM/REG DATE : 12/06/16 MR#: [id number] REPORT SERV DATE: 12/13/16 DICTATED BY: YANELY CHIRINOS DATE: 12/12/16 REPORT STATUS : Draft TRANSCRIBED BY: MODL DATE: 12/12/16 Overall, he had a stable hospitalization and did not require any home oxygen use. We will put him on the Lasix every other days for preventive accumulation of transudate. The patient has protein calorie malnutrition with hypoalbuminemia. He had a protein supplement for his meal. He has been tolerating all of his treatment. Evaluated by Physical Therapy, and also disposition was made to rehab. I explained to the patient and daughter, they all agreed to go to rehab. The patient will be discharged today. DISCHARGE MEDICATIONS: 1. Continue Lipitor 40 mg once at nighttime. 2. Dulcolax once a day. 3. Coreg 12.5 mg twice a day. 4. Ferrous sulfate 300 mg once a day. 5. Diflucan 400 mg once a day. 6. Mag-Ox 800 mg once a day. 7. Lasix 40 mg every other day. 8. MiraLAX powder once a day. 9. Potassium chloride 20 mEq once a day. 10.Alprazolam 25 mg every 8 hours. 11.Flomax 0.4 mg once a day. 12.[place] as needed. TIME SPENT: More than 30 minutes in coordination of discharge. DISPOSITION: The patient is discharged to [facility]. EKL/MODL Yanely Chirinos M.D. / [id number] CC: Marin Palumbo M.D.
--- NOTE | ~2016-12-06 | HP ---
History And Physical [address] [place]. [address] NAME: KASHIF GANT : 38 STATUS : ADM IN [facility]#: [id number] AGE: 76 ADM/REG DATE : 12/06/16 MR#: [id number] REPORT SERV DATE: 12/06/16 DICTATED BY: WELSY HOLLIDAY DATE: 12/06/16 REPORT STATUS : Draft TRANSCRIBED BY: MODL DATE: 12/06/16 DATE OF ADMISSION: 12/06/2016 CHIEF COMPLAINT: Shortness of breath. HISTORY OF PRESENT ILLNESS: This is a 76-year-old male, who was recently discharged home after being treated as an inpatient here for cryptococcal meningitis. He returns today with sudden onset of shortness of breath which started last night. History is obtained from the patient, and reviewing data available on the [employer] system. According to Mr. Gant, he was doing reasonably well after his discharge from the hospital, was compliant with all his medications. Last night around 7:00 p.m. he suddenly started having shortness of breath. He says he was laying in bed and suddenly could not breathe and had to sit up. Since that time he had become progressively more short of breath, and finally decided to come to the emergency room to be evaluated. In the emergency room, initial workup revealed a CTA of the chest showing bilateral pleural effusions and a pericardial effusion as well. He also presented with uncontrolled hypertension. Hospitalist Service is asked to admit him for further evaluation and treatment. At the time of my evaluation, he denied any chest pain or palpitations. He has mild orthopnea. He has a dry nonproductive cough, not associated with any hemoptysis, night sweats, or weight loss. He has not had any recent falls or loss of consciousness. He denied any fevers, chills, nausea, vomiting, or diarrhea. No bleeding from any place. No other history of recent travel or exposures other than those mentioned above. PAST MEDICAL HISTORY: Significant for history of cryptococcal meningitis, essential hypertension, chronic kidney disease, and right renal mass. SOCIAL HISTORY: He has never smoked, does not drink, or use recreational drugs. FAMILY HISTORY: Noncontributory. MEDICATIONS: His medications at home were reviewed by me in the chart today and reordered by me. REVIEW OF SYSTEMS: As in history of present illness. All other systems were reviewed in detail and are quite unremarkable. PHYSICAL EXAMINATION: GENERAL: This is a pleasant 76-year-old, not in any acute distress. HEENT: His head is atraumatic and normocephalic. He is alert, awake, oriented to time, place, and person. His pupils are equal, reacting to light and accommodating. External ocular muscles are intact. Membranes are moist and pink. Sclerae are nonicteric. History And Physical [address] [address] NAME: KSAHIF GANT : 38 STATUS : ADM IN PAT#: [id number] AGE: 76 ADM/REG DATE : 12/06/16 MR#: [id number] REPORT SERV DATE: 12/06/16 DICTATED BY: WESLY HOLLIDAY DATE: 12/06/16 REPORT STATUS : Draft TRANSCRIBED BY: HILARIO DATE: 12/06/16 NECK: Supple with no jugular venous distention, lymphadenopathy, or thyromegaly. LUNGS: Auscultation of his lungs revealed fair to moderate air entry bilaterally with few crackles in both bases. HEART: Heart sounds were muffled, regular with no murmurs, rubs, or gallops. ABDOMEN: Soft and nontender. Bowel sounds are present. EXTREMITIES: Showed no cyanosis, clubbing, or edema. NEUROLOGIC: Grossly intact. No focal deficits. Higher functions appeared intact. VITAL SIGNS: His vital signs today showed a temperature of 98.4, pulse 83, respirations 15 a minute, blood pressure was 165/102 upon arrival. Oxygen saturations were 98% on 1 to 2 L via nasal cannula. LABORATORY DATA: Reviewed on the [employer] system today showed a pH of 7.45 on an arterial blood gas, pCO2 was 30, PaO2 was 72, and bicarb was 20.3. This was on room air. His CMP showed a sodium of 143, potassium 3.5, chloride 107, and CO2 of 27. BUN was 15 with a creatinine of 1.33 which is slightly up from his baseline. His blood glucose was 125 today. Troponin today was 0.02 and BNP was 171.3. CBC showed a white blood cell count of 6,800, hemoglobin was 10.3, hematocrit 29.1, and platelet count was 263,000. Urinalysis was not done today. Films of the CTA of the chest were reviewed by me on the PACS today and interpreted by me. Official Radiology report was also reviewed as no pulmonary embolism. There are bilateral pleural effusions, right greater than left, and there is a pericardial effusion as well. A 12-lead EKG done in the emergency room was reviewed and interpreted by me. There is low voltage QRS complexes, otherwise normal sinus rhythm at a rate of 79 per minute. IMPRESSION: 1. Shortness of breath. 2. Bilateral pleural effusions. 3. Pericardial effusion. 4. Essential hypertension, uncontrolled. 5. Recent cryptococcal meningitis. 6. Chronic kidney disease. 7. Right renal mass. PLAN: We will admit Mr. Gant to the Hospitalist Service with cardiac telemetry. We will give him a dose of intravenous diuretic now, and monitor output and daily weights closely. We will get IR to do a therapeutic or diagnostic thoracentesis on his right pleural effusion today. We will also get Thoracic Surgery involved to evaluate his pericardial effusion. We will get an echocardiogram as well. Meanwhile, we will go ahead and reconsult Infectious Disease Team who had seen him in the past, continue his Diflucan that he is on. We will History And Physical [address] [address] NAME: KASHIF GANT : 38 STATUS : ADM IN [facility]#: [id number] AGE: 76 ADM/REG DATE : 12/06/16 MR#: [id number] REPORT SERV DATE: 12/06/16 DICTATED BY: WESLY HOLLIDAY DATE: 12/06/16 REPORT STATUS : Draft TRANSCRIBED BY: HILARIO DATE: 12/06/16 obtain blood cultures, and all other labs as well. We will also control blood pressure with hydralazine given intravenously on an as-needed basis. For his right renal mass, he was seen by Dr. Seferino Hannon during his last inpatient admission. We will also place him on SCDs for DVT prophylaxis while he is here for now. Further recommendations will follow after we review the results of the tests above, and Infectious Disease and Thoracic Surgery have had a chance to see him. Hospitalist Service will be following him during his stay here. /HILARIO Wesly Holliday M.D. / [id number] CC: Marin Cabral M.D.
--- NOTE | ~2016-12-06 | IDS ---
Interim Discharge Summary [facility] [address] [place]. [address] NAME: KASHIF DUARTE : 38 STATUS : ADM IN [facility]#: [id number] AGE: 76 ADM/REG DATE : 12/06/16 MR#: [id number] REPORT SERV DATE: 12/09/16 DICTATED BY: DATE: REPORT STATUS : Draft TRANSCRIBED BY: MODL DATE: 12/09/16 ADMISSION DATE: 12/06/2016 DISCHARGE DATE: [facility] CONSULTANTS: Include Dr. Alexy Morillo of Cardiothoracic surgery, now signed off and Dr. Ko Good of Infectious Disease. Consultation is pending from Dr. Seferino Hannon of Urology. CURRENT DIAGNOSES: 1. Bilateral pleural effusions at admission, status post right thoracentesis on 12/06/2016, with 1.3 L fluid removed. Transudative by studies. 2. Pericardial effusion with early tamponade physiology, status post pericardial window on 12/06/2016. 3. Recently diagnosed cryptococcal meningitis, status post amphotericin, now on Diflucan. 4. Acute kidney injury, suspect due to urinary retention. 5. Acute urinary retention. 6. Hypertension, hypotensive during admission. 7. Hypokalemia. 8. Hypomagnesemia. 9. Hyperlipidemia. 10.Early dementia versus mild cognitive impairment versus cognitive impairment due to meningitis. 11.History of dysphagia, evaluated last admission. 12.Recently diagnosed right renal mass with concern for malignancy, for repeat evaluation by Dr. Hannon this admission. 13.Severe protein-calorie malnutrition. IMAGING AND DIAGNOSTICS: 1. Portable chest x-ray, 12/06/2016, for shortness of breath shows right perihilar infiltrate with right pleural effusion. 2. CTA chest, 12/06/2016, pulmonary venous hypertension with interstitial edema. Bilateral pleural effusions. Right effusion measures 6.5 cm and left effusion measures 3 cm. Pericardial effusion measuring 2 cm anteriorly and 1.5 cm posteriorly. Diffuse wall thickening of the transverse colon suspicious for diffuse colitis. Portable chest x-ray, 12/06/2016, shows radiopaque chest tube overlying cardiac silhouette consistent with pericardial drain. No pneumothorax. Moderately severe perihilar and bibasilar infiltrates with associated subsegmental atelectasis. Small bilateral effusions. 3. Echocardiogram, 12/06/2016, limited study demonstrating tamponade physiology. Prior echocardiogram, 11/2016 showing ejection fraction 50% to 55% with mild diastolic dysfunction and moderate aortic stenosis. Multiple portable chest x-rays between 12/07/2016 and 12/09/2016 demonstrating enlarged cardiac silhouette with pulmonary vascular congestion and left basilar atelectasis or pleural fluid. Please also reference imaging from 11/2016 hospitalization, which included swallow evaluation, MRI of the brain and MRA of the head and neck, MRI of the cervical spine, renal Interim Discharge Summary [address] [facility] [place]. [address] NAME: KAHSIF DUARTE : 38 STATUS : ADM IN [facility]#: [id number] AGE: 76 ADM/REG DATE : 12/06/16 MR#: [id number] REPORT SERV DATE: 12/09/16 DICTATED BY: DATE: REPORT STATUS : Draft TRANSCRIBED BY: MODL DATE: 12/09/16 ultrasound, CT of the abdomen and pelvis without contrast. PERTINENT LABS: Current creatinine value 1.05, down from 1.55 at admission. Total protein 5.2, albumin 2.3, pre-albumin 5.1, normal liver enzymes. TSH 1.57. BNP 171. SPEP negative for monoclonal protein. HIV in November hospitalization was negative. White blood cell count has been normal this admission with the exception of 12/07/2016, when it was 13.5, hemoglobin values have ranged from 9.2 to 10.6. Prior iron studies consistent with mixed iron deficiency and anemia of chronic disease. D-dimer 1.02. Strep pneumococcal antigen negative. Legionella negative. RPR negative. Blood cultures x4, no growth to date. Right thoracentesis pleural fluid culture is negative. Pericardial fluid culture negative. Pleural fluid LDH 71 with serum LDH 128. Pleural fluid total cholesterol less than 50. Pleural fluid total protein 2.0. BRIEF HISTORY: For full details, please see the previously dictated history of present illness by Dr. Wesly Pryor. Briefly, this is a 76-year-old -English male who was hospitalized at [facility] from 11/18/2016 through 12/04/2016 with cryptococcal meningitis, discharged home on Diflucan. He returned to the emergency department on the morning of 12/06/2016 with acute onset of shortness of breath, was found to have bilateral pleural effusions and pericardial effusion. He was admitted to the Hospitalist Service for further management. HOSPITAL COURSE: The patient was admitted on the morning of 12/06/2016, and by noon, had a right-sided thoracentesis with 1.3 L of transudative fluid removed, and a limited echocardiogram demonstrating a pericardial effusion with tamponade physiology. Case was discussed with the nurse practitioner from Cardiothoracic Surgery, who stated that Dr. Morillo was aware of the finding, and had plans for an urgent pericardial window on the afternoon of 12/06/2016. This occurred without difficulty, and the patient was sent to the CCU for postoperative recovery and chest tube management. The patient had an uneventful postop course and was transferred to [address] [place] [address] on 12/07/2016. Evaluation is underway for etiology of the transudative pleural effusion. A 24-hour urine protein is in process to evaluate for nephrotic syndrome. All culture data has been negative and thus, the effusions are not felt to be related to cryptococcal meningitis. His EF in November was normal, has no evidence of liver disease or ascites by prior imaging, has a normal TSH, no evidence of pulmonary embolism, and no evidence of any type of inflammatory lung disease that would help to explain it. There was also concern that these effusions may be related to malignancy as the patient has a recently diagnosed right renal mass with prior plan per Dr. Hannon for outpatient followup. Cytology from the pericardium and pleural fluid is still pending, and urine cytology has been requested today as well. Serum protein electrophoresis is negative, but the patient also has a urine protein electrophoresis pending. In the process of collecting a 24-hour urine for protein, the patient was noted to have several high post-void residuals and acute urinary retention. A Roy catheter was placed over night on 12/08/2016. Interim Discharge Summary [address] [place]. [address] NAME: KASHIF DUARTE : 38 STATUS : ADM IN [facility]#: [id number] AGE: 76 ADM/REG DATE : 12/06/16 MR#: [id number] REPORT SERV DATE: 12/09/16 DICTATED BY: DATE: REPORT STATUS : Draft TRANSCRIBED BY: MODL DATE: 12/09/16 The patient's shortness of breath is much improved with stable oxygen saturations, but he remains hospitalized awaiting determination of the etiology of his multiple effusions and for consideration of a left-sided thoracentesis. We have also asked Dr. Hannon to re-consult regarding the right renal mass and the presence of these effusions for consideration of inpatient rather than outpatient evaluation. Both Cardiothoracic Surgery and Infectious Disease have currently signed off with Cardiothoracic Surgery recommending follow up with Dr. Alexy Morillo in three to four weeks. Infectious Disease is recommending continuation of Diflucan per prior plan, which was for six [address] Ko Good has a followup scheduled with him in the beginning of January. DISPOSITION: The patient remains hospitalized to be followed by a colleague starting tomorrow. AKS/MIGUELL Alexys Alfaro M.D. / [id number] CC: Marin Sheehan M.D.
--- NOTE | ~2016-12-06 | CN ---
Consultation Report [facility] [address] [facility] [place]. [address] NAME: KASHIF DUARTE : 38 STATUS : ADM IN [facility]#: [id number] AGE: 76 ADM/REG DATE : 12/06/16 MR#: [id number] REPORT SERV DATE: 12/06/16 DICTATED BY: ALEXY VENEGAS DATE: 12/06/16 REPORT STATUS : Draft TRANSCRIBED BY: MODL DATE: 12/06/16 CONSULTATION DATE OF CONSULTATION: 12/06/2016 PERTINENT HISTORY: The patient is a 76-year-old gentleman admitted to the hospital with shortness of breath, found to have bilateral pleural effusions, admitted by the hospitalist service on the date of 12/06/2016. During his workup, he had an echocardiogram which demonstrated large pericardial effusion. Cardiology consultation was obtained and pre- tamponade physiology was noted. The patient referred for emergent surgical intervention for subxiphoid drainage of pericardial effusion. The patient's symptoms of shortness of breath becoming acutely worse over the past few days. He had recently been hospitalized with a diagnosis of cryptococcal meningitis, also cholecystectomy. He had no previous history of heart disease. PAST MEDICAL HISTORY: Significant for no previous cardiothoracic surgery. He has history of cholecystectomy and recently diagnosed of cryptococcal meningitis. No history of coronary artery disease. No history of stroke. No history of heart attack. SOCIAL HISTORY: Negative for tobacco, ethanol use. FAMILY HISTORY: Noncontributory. REVIEW OF SYSTEMS: Negative except for those listed in the history of present illness. PHYSICAL EXAMINATION: VITAL SIGNS: Afebrile. Blood pressure was 160/90, heart rate was at 100. CONSTITUTIONAL: He was in no acute distress. Alert and oriented x3. NEUROLOGICAL: He was intact. CVS: Showed distant heart sounds. No obvious murmur noted. Vascular examination showed full pulses. No bruits. GI: Showed abdomen is soft, nontender. Well healed cholecystectomy site. RESPIRATORY: Showed diminished breath sounds in both bases. SKIN: Showed no rashes. Normal to examination. PSYCH: Normal. The echocardiogram demonstrated large pericardial effusion with pre-tamponade physiology as noted by Cardiology. Laboratory exam is otherwise unremarkable, IMPRESSION: At this time is large pericardial effusion with pre-tamponade physiology. Plan to proceed with emergent subxiphoid drainage of pericardial effusion. Consultation Report [address] [address] NAME: KASHIF DUARTE : 38 STATUS : ADM IN PAT#: [id number] AGE: 76 ADM/REG DATE : 12/06/16 MR#: [id number] REPORT SERV DATE: 12/06/16 DICTATED BY: ALEXY VENEGAS DATE: 12/06/16 REPORT STATUS : Draft TRANSCRIBED BY: HILARIO DATE: 12/06/16 HARSHAD/HILARIO Alexy Venegas M.D. / [id number] CC: Alexys Alfaro M.D.
--- NOTE | ~2016-12-06 | OP ---
Record Of Operation [facility] [address] [place]. [address] NAME: KASHIF DUARTE : 36 STATUS : ADM IN [facility]#: [id number] AGE: 76 ADM/REG DATE : 12/06/16 MR#: [id number] REPORT SERV DATE: 12/06/16 DICTATED BY: ALEXY VENEGAS DATE: 12/06/16 REPORT STATUS : Draft TRANSCRIBED BY: MODL DATE: 12/06/16 DATE OF PROCEDURE: 12/06/2016 PREOPERATIVE DIAGNOSIS: Pericardial effusion with impending pericardial tamponade. POSTOPERATIVE DIAGNOSIS: Pericardial effusion with impending pericardial tamponade. PROCEDURES: Emergent subxiphoid drainage of pericardial effusion with pericardial biopsy. OPERATIVE SURGEON: Alexy Venegas M.D. ANESTHESIA: General endotracheal anesthesia, AA. CHEST TUBES PLACED: A 36-[place] right angle chest tube in the pericardial space. PERTINENT HISTORY: The patient is a 76-year-old gentleman, referred emergently to hospitalist at the hospital after the patient admitted with shortness of breath. The echocardiogram had been performed and interpreted as impending tamponade. OPERATIVE FINDINGS: The patient had 500 mL of serous fluid in the pericardial space. No other pathology was evident. The fluid was sent for cytology as well as culture. DESCRIPTION OF PROCEDURE: The patient was taken to the operating room, placed in supine position. Anesthesia was obtained. The patient was prepped and draped in the usual sterile fashion. Incision made over the xiphoid process. The linea alba was divided, retractors were placed. Xiphoid process was excised. The pericardium was identified and was opened, 500 mL of serous fluid was aspirated. It was not bloody. No hemodynamic changes were noted. The pericardial biopsy was obtained. Fluid was sent for cytology as well as culture. The pericardial biopsy sent for permanent section. The space was irrigated with saline. No other pathology was noted. A 36-[place] right angle chest tubes placed in the pericardial space. The linea alba was approximated with running #1 Stratafix suture. The skin and subcutaneous tissue were closed with running 2-0 Stratafix suture. Sterile dressings were applied. The patient tolerated the procedure well and was taken back to the recovery room in stable condition. HARSHAD/HILARIO Alexy Venegas M.D. / [id number] CC: Alexys Alfaro M.D.
[2016-12-06 03:23] LABS: ALLENS TEST Pos; BE (BASE EXCESS) -2.9 MEQ/L (0 +/- 2.5); CARBOXYHEMOGLOBIN 0.6 % (0-3); HCO3 (ACTUAL BICARBONATE) 20.3 MEQ/L (23-27); HEMOBLOGIN CONTENT 10.8 G/DL (14-18); INSTRUMENT SERIAL # 8087; METHEMOGLOBIN 0.2 % (0-3); OPERATOR ID 17589; PCO2 (CO2 TENSION) 30 MMHG (35-45); PO2 (O2 TENSION) 72 MMHG (79-93); SAMPLE Arterial; pH 7.45 (7.37-7.43)
[2016-12-06 03:59] LABS: BASOPHILS 0.4 %; BASOPHILS ABSOLUTE 0.03 10/3/uL (0.0-0.16); EOSINOPHILS 4.1 %; EOSINOPHILS ABSOLUTE 0.28 10/3/uL (0.0-0.53); ER CBC TAT 0 Hrs 09 Mins; HEMATOCRIT 29.1 % (40.0-51.0); HEMOGLOBIN 10.3 g/dL (13.6-17.8); IMMATURE GRANULOCYTES 0.3 %; IMMATURE GRANULOCYTES ABSOLUTE 0.02 10/3/uL (0.0-0.11); LYMPHOCYTES 10.2 %; LYMPHOCYTES ABSOLUTE 0.69 10/3/uL (0.67-4.30); MEAN CORPUS HGB CONC 35.4 g/dL (32.0-36.0); MEAN CORPUSCULAR HEMOGLOB 30.6 pg (26.0-34.0); MEAN CORPUSCULAR VOLUME 86.4 fL (80-100); MEAN PLATELET VOLUME 8.6 fL (9.2-13.0); MONOCYTES 15.8 %; MONOCYTES ABSOLUTE 1.07 10/3/uL (0.21-1.20); NEUTROPHILS 69.2 %; PLATELET COUNT 263 10/3/uL (150-400); RBC DISTRIBUTION WIDTH 13.2 % (12.0-16.0); RED CELL COUNT 3.37 10/6/uL (4.7-6.1); WHITE BLOOD CELLS 6.8 10/3/uL (4.5-10.5)
[2016-12-06 04:01] LABS: MANUAL DIFF NO %
[2016-12-06 04:08] LABS: INTERNATIONAL NORMAL RATI 1.5 UNITS (-); PARTIAL THROMBO TIME 29.1 SEC (22.5-37.2); PROTIME (NOT ORD) 17.6 SEC (12.0-14.5)
[2016-12-06 04:10] LABS: D-DIMER QUANTITATIVE 1.02 ug/mLFEU (< 0.50)
[2016-12-06 04:14] LABS: BUN (BLOOD UREA NITROGEN) 15 MG/DL (6-23); CALCIUM, SERUM 8.7 MG/DL (8.5-10.4); CHEST PAIN PROFILE TAT 0 Hrs 24 Mins; CHLORIDE, SERUM 107 MMOL/L (96-112); CO2 (CARBON DIOXIDE) 27 MMOL/L (24-34); CREATININE 1.33 MG/DL (0.70-1.30); GFR AFRICAN AMERICAN 59 ML/MIN (>=60); GFR NON AFRICAN AMERICAN 51 ML/MIN (>=60); GLUCOSE, SERUM 125 MG/DL (60-99); POTASSIUM, SERUM 3.5 MMOL/L (3.5-5.3); SODIUM, SERUM 143 MMOL/L (135-148); TROPONIN I <0.02 NG/ML (<0.05)
[~2016-12-06 04:20] MED LIST: APRES25 PO; COREG12 PO; COREG25 PO; KLOR-CON20 MEQ PO; LIPITOR40 PO; MAGOX4 PO; MCZ25 PO; MICROZIDE PO; [UNRECOGNIZED DRUG - CODE] IV
[2016-12-06 11:33] LABS: INSTRUMENT SERIAL # 35151; OPERATOR ID 32199; SAMPLE PLR; pH 7.43 (7.37-7.43)
[2016-12-06 13:47] LABS: BF TOTAL CELL CT (NOT ORD 151 /MM3; BODY FLUID RBC (NOT ORD) < 10 /MM3
[2016-12-06 14:02] LABS: BD FL LYMPH (NOT ORD) 19 %; BF BASO (NOT OF) 0 %; BF LARGE MONONUCLEAR 59 %; BODY FLUID EOS (NOT ORD) 0 %; BODY FLUID SEG (NOT ORD) 22 %
[2016-12-06 14:03] LABS: BD FL SOURCE (NOT ORD) THORACENTESIS
[2016-12-06 14:05] LABS: AMYLASE BODY FLUID 11 U/L; BODY FLUID TRIGLYCERIDE 8 MG/DL; GLUCOSE BODY FL (NOT ORD) 114 MG/DL; LDH BODY FLUID (NOT ORD) 71 U/L
[2016-12-06 14:06] LABS: BODY FLUID CHOLESTEROL < 50 MG/DL
[2016-12-06 14:32] LABS: INTERNATIONAL NORMAL RATI 1.5 UNITS (-); PROTIME (NOT ORD) 17.9 SEC (12.0-14.5)
[2016-12-06 16:40] LABS: BASOPHILS 0.4 %; BASOPHILS ABSOLUTE 0.02 10/3/uL (0.0-0.16); EOSINOPHILS 4.1 %; EOSINOPHILS ABSOLUTE 0.22 10/3/uL (0.0-0.53); HEMOGLOBIN 9.2 g/dL (13.6-17.8); IMMATURE GRANULOCYTES 0.4 %; IMMATURE GRANULOCYTES ABSOLUTE 0.02 10/3/uL (0.0-0.11); LYMPHOCYTES 12.6 %; LYMPHOCYTES ABSOLUTE 0.67 10/3/uL (0.67-4.30); MEAN CORPUS HGB CONC 35.2 g/dL (32.0-36.0); MEAN CORPUSCULAR HEMOGLOB 30.7 pg (26.0-34.0); MONOCYTES 17.8 %; MONOCYTES ABSOLUTE 0.95 10/3/uL (0.21-1.20); NEUTROPHILS 64.7 %; NEUTROPHILS ABSOLUTE 3.45 10/3/uL (2.02-8.40); PLATELET COUNT 204 10/3/uL (150-400); RBC DISTRIBUTION WIDTH 13.2 % (12.0-16.0); WHITE BLOOD CELLS 5.3 10/3/uL (4.5-10.5)
[2016-12-06 16:44] LABS: HEMATOCRIT 26.1 % (40.0-51.0); MANUAL DIFF NO %
[2016-12-06 16:50] LABS: BUN (BLOOD UREA NITROGEN) 12 MG/DL (6-23); CALCIUM, SERUM 8.3 MG/DL (8.5-10.4); CHLORIDE, SERUM 110 MMOL/L (96-112); CO2 (CARBON DIOXIDE) 27 MMOL/L (24-34); CREATININE 1.23 MG/DL (0.70-1.30); GFR AFRICAN AMERICAN 65 ML/MIN (>=60); GFR NON AFRICAN AMERICAN 56 ML/MIN (>=60); GLUCOSE, SERUM 107 MG/DL (60-99); POTASSIUM, SERUM 3.1 MMOL/L (3.5-5.3); SODIUM, SERUM 144 MMOL/L (135-148)
[2016-12-06 20:33] LABS: BASOPHILS 0.3 %; BASOPHILS ABSOLUTE 0.02 10/3/uL (0.0-0.16); EOSINOPHILS 2.3 %; EOSINOPHILS ABSOLUTE 0.18 10/3/uL (0.0-0.53); HEMATOCRIT 30.3 % (40.0-51.0); HEMOGLOBIN 10.6 g/dL (13.6-17.8); IMMATURE GRANULOCYTES 0.3 %; IMMATURE GRANULOCYTES ABSOLUTE 0.02 10/3/uL (0.0-0.11); LYMPHOCYTES ABSOLUTE 0.54 10/3/uL (0.67-4.30); MEAN CORPUSCULAR HEMOGLOB 30.6 pg (26.0-34.0); MEAN CORPUSCULAR VOLUME 87.6 fL (80-100); MEAN PLATELET VOLUME 8.5 fL (9.2-13.0); MONOCYTES 11.9 %; MONOCYTES ABSOLUTE 0.92 10/3/uL (0.21-1.20); NEUTROPHILS 78.2 %; NEUTROPHILS ABSOLUTE 6.06 10/3/uL (2.02-8.40); PLATELET COUNT 273 10/3/uL (150-400); RBC DISTRIBUTION WIDTH 13.5 % (12.0-16.0); RED CELL COUNT 3.46 10/6/uL (4.7-6.1); WHITE BLOOD CELLS 7.7 10/3/uL (4.5-10.5)
[2016-12-06 20:34] LABS: MANUAL DIFF NO %
[2016-12-06 20:45] LABS: BUN (BLOOD UREA NITROGEN) 12 MG/DL (6-23); CALCIUM, SERUM 8.5 MG/DL (8.5-10.4); CHLORIDE, SERUM 111 MMOL/L (96-112); CO2 (CARBON DIOXIDE) 26 MMOL/L (24-34); CREATININE 1.19 MG/DL (0.70-1.30); GFR AFRICAN AMERICAN 67 ML/MIN (>=60); GFR NON AFRICAN AMERICAN 58 ML/MIN (>=60); GLUCOSE, SERUM 142 MG/DL (60-99); POTASSIUM, SERUM 3.6 MMOL/L (3.5-5.3); SODIUM, SERUM 143 MMOL/L (135-148)
[2016-12-07 03:31] LABS: BASOPHILS 0.1 %; BASOPHILS ABSOLUTE 0.02 10/3/uL (0.0-0.16); EOSINOPHILS 0.2 %; EOSINOPHILS ABSOLUTE 0.03 10/3/uL (0.0-0.53); HEMATOCRIT 28.9 % (40.0-51.0); HEMOGLOBIN 9.9 g/dL (13.6-17.8); IMMATURE GRANULOCYTES 0.4 %; IMMATURE GRANULOCYTES ABSOLUTE 0.05 10/3/uL (0.0-0.11); LYMPHOCYTES 6.9 %; LYMPHOCYTES ABSOLUTE 0.93 10/3/uL (0.67-4.30); MEAN CORPUS HGB CONC 34.3 g/dL (32.0-36.0); MEAN CORPUSCULAR HEMOGLOB 30.4 pg (26.0-34.0); MEAN CORPUSCULAR VOLUME 88.7 fL (80-100); MEAN PLATELET VOLUME 8.4 fL (9.2-13.0); MONOCYTES 7.3 %; MONOCYTES ABSOLUTE 0.99 10/3/uL (0.21-1.20); NEUTROPHILS 85.1 %; NEUTROPHILS ABSOLUTE 11.45 10/3/uL (2.02-8.40); PLATELET COUNT 249 10/3/uL (150-400); RBC DISTRIBUTION WIDTH 13.5 % (12.0-16.0); RED CELL COUNT 3.26 10/6/uL (4.7-6.1)
[2016-12-07 03:35] LABS: MANUAL DIFF NO %; WHITE BLOOD CELLS 13.5 10/3/uL (4.5-10.5)
[2016-12-07 03:54] LABS: CHLORIDE, SERUM 108 MMOL/L (96-112); CO2 (CARBON DIOXIDE) 26 MMOL/L (24-34); CREATININE 1.55 MG/DL (0.70-1.30); GFR AFRICAN AMERICAN 49 ML/MIN (>=60); GFR NON AFRICAN AMERICAN 42 ML/MIN (>=60); POTASSIUM, SERUM 3.4 MMOL/L (3.5-5.3); SODIUM, SERUM 143 MMOL/L (135-148)
[2016-12-07 03:55] LABS: BUN (BLOOD UREA NITROGEN) 16 MG/DL (6-23); GLUCOSE, SERUM 100 MG/DL (60-99); PHOSPHORUS, SERUM 4.9 MG/DL (2.5-4.5)
[2016-12-08 04:58] LABS: BASOPHILS 0.2 %; BASOPHILS ABSOLUTE 0.02 10/3/uL (0.0-0.16); EOSINOPHILS 1.9 %; EOSINOPHILS ABSOLUTE 0.18 10/3/uL (0.0-0.53); HEMATOCRIT 30.5 % (40.0-51.0); HEMOGLOBIN 10.4 g/dL (13.6-17.8); IMMATURE GRANULOCYTES 0.5 %; IMMATURE GRANULOCYTES ABSOLUTE 0.05 10/3/uL (0.0-0.11); LYMPHOCYTES 9.5 %; LYMPHOCYTES ABSOLUTE 0.92 10/3/uL (0.67-4.30); MEAN CORPUS HGB CONC 34.1 g/dL (32.0-36.0); MEAN CORPUSCULAR HEMOGLOB 30.5 pg (26.0-34.0); MEAN CORPUSCULAR VOLUME 89.4 fL (80-100); MEAN PLATELET VOLUME 8.6 fL (9.2-13.0); MONOCYTES 15.6 %; MONOCYTES ABSOLUTE 1.51 10/3/uL (0.21-1.20); NEUTROPHILS 72.3 %; NEUTROPHILS ABSOLUTE 6.98 10/3/uL (2.02-8.40); PLATELET COUNT 240 10/3/uL (150-400); RBC DISTRIBUTION WIDTH 13.3 % (12.0-16.0); RED CELL COUNT 3.41 10/6/uL (4.7-6.1); WHITE BLOOD CELLS 9.7 10/3/uL (4.5-10.5)
[2016-12-08 04:59] LABS: MANUAL DIFF NO %
[2016-12-08 05:09] LABS: ALBUMIN 2.6 G/DL (3.5-5.0); BUN (BLOOD UREA NITROGEN) 20 MG/DL (6-23); CALCIUM, SERUM 8.6 MG/DL (8.5-10.4); CHLORIDE, SERUM 105 MMOL/L (96-112); CO2 (CARBON DIOXIDE) 26 MMOL/L (24-34); GFR AFRICAN AMERICAN 51 ML/MIN (>=60); GFR NON AFRICAN AMERICAN 44 ML/MIN (>=60); GLUCOSE, SERUM 118 MG/DL (60-99); PHOSPHORUS, SERUM 2.7 MG/DL (2.5-4.5); POTASSIUM, SERUM 3.6 MMOL/L (3.5-5.3); SODIUM, SERUM 139 MMOL/L (135-148)
[2016-12-09 05:17] LABS: BASOPHILS 0.1 %; BASOPHILS ABSOLUTE 0.01 10/3/uL (0.0-0.16); EOSINOPHILS 1.6 %; EOSINOPHILS ABSOLUTE 0.12 10/3/uL (0.0-0.53); HEMOGLOBIN 9.3 g/dL (13.6-17.8); IMMATURE GRANULOCYTES 0.5 %; IMMATURE GRANULOCYTES ABSOLUTE 0.04 10/3/uL (0.0-0.11); LYMPHOCYTES 11.7 %; MEAN CORPUSCULAR HEMOGLOB 30.8 pg (26.0-34.0); MEAN CORPUSCULAR VOLUME 88.1 fL (80-100); MEAN PLATELET VOLUME 8.8 fL (9.2-13.0); MONOCYTES 18.7 %; MONOCYTES ABSOLUTE 1.44 10/3/uL (0.21-1.20); NEUTROPHILS 67.4 %; NEUTROPHILS ABSOLUTE 5.21 10/3/uL (2.02-8.40); PLATELET COUNT 226 10/3/uL (150-400); RBC DISTRIBUTION WIDTH 13.4 % (12.0-16.0); RED CELL COUNT 3.02 10/6/uL (4.7-6.1); WHITE BLOOD CELLS 7.7 10/3/uL (4.5-10.5)
[2016-12-09 05:23] LABS: HEMATOCRIT 26.6 % (40.0-51.0); MANUAL DIFF NO %
[2016-12-09 05:32] LABS: A/G RATIO 0.8 (0.7-1.9); ALBUMIN 2.3 G/DL (3.5-5.0); ALKALINE PHOSPHATASE 58 U/L (45-117); BUN (BLOOD UREA NITROGEN) 14 MG/DL (6-23); CHLORIDE, SERUM 107 MMOL/L (96-112); CO2 (CARBON DIOXIDE) 24 MMOL/L (24-34); CREATININE 1.05 MG/DL (0.70-1.30); GFR AFRICAN AMERICAN 78 ML/MIN (>=60); GFR NON AFRICAN AMERICAN 68 ML/MIN (>=60); GLOBULIN 2.9 G/DL (2.5-4.1); GLUCOSE, SERUM 104 MG/DL (60-99); POTASSIUM, SERUM 3.8 MMOL/L (3.5-5.3); PREALBUMIN 5.1 MG/DL (17.0-43.0); SGOT(AST) 15 U/L (5-40); SGPT(ALT) 16 U/L (5-65); SODIUM, SERUM 139 MMOL/L (135-148); TOTAL BILIRUBIN 1.2 MG/DL (0-1.2); TOTAL PROTEIN 5.2 G/DL (6.0-8.5)
[2016-12-09 05:44] LABS: T PROTEIN (ELECT)(NOT OR 4.6 G/DL (6.0-8.5)
[2016-12-09 12:54] LABS: A/G 1.31 RATIO (0.9-2.10); ALB RELATIVE % 56.8 % (60.0-89.0); ALBUMIN (ELECTRO) 2.61 GM/DL (3.2-5.5); ALPHA 1 RELAT % (NOT ORD) 6.6 % (1.0-4.0); ALPHA 2 (ELECTRO) 0.56 GM/DL (0.5-1.10); ALPHA 2 RELAT % 12.2 % (4.5-26.0); BETA GLOBULIN (SPE) 0.54 GM/DL (0.60-1.30); BETA RELATIVE % 11.7 % (9.0-22.0); GAMMA GLOBULIN (SPE) 0.58 G/DL (0.70-1.60); GAMMA RELAT % 12.7 % (6.0-22.0)
[2016-12-09 14:55] LABS: T.P. URINE (NOT ORDER RAN 48.6 MG/DL
[2016-12-09 14:58] LABS: TOTAL PROTEIN URINE 48.6 MG/DL
[2016-12-09 15:19] LABS: ASCORBIC ACID (UR NOT ORDER) 20 (NEG); BILIRUBIN, URINE NEGATIVE (NEG); KETONE, URINE NEGATIVE (NEG); LEUKOCYTE ESTERASE(NOT OR MOD (NEG); WBC (NOT ORDERED) (RFLEX) 16 (0-5)
[2016-12-09 15:48] LABS: T.V. 24HR UR 2550 ML/24HR (600-1600)
[2016-12-10 04:20] LABS: HEMATOCRIT 27.5 % (40.0-51.0); HEMOGLOBIN 9.6 g/dL (13.6-17.8); MEAN CORPUS HGB CONC 34.9 g/dL (32.0-36.0); MEAN CORPUSCULAR HEMOGLOB 30.9 pg (26.0-34.0); MEAN CORPUSCULAR VOLUME 88.4 fL (80-100); MEAN PLATELET VOLUME 8.6 fL (9.2-13.0); PLATELET COUNT 240 10/3/uL (150-400); RBC DISTRIBUTION WIDTH 13.3 % (12.0-16.0); RED CELL COUNT 3.11 10/6/uL (4.7-6.1)
[2016-12-10 04:29] LABS: MANUAL DIFF YES %
[2016-12-10 04:30] LABS: ALBUMIN 2.3 G/DL (3.5-5.0); BUN (BLOOD UREA NITROGEN) 11 MG/DL (6-23); CALCIUM, SERUM 7.8 MG/DL (8.5-10.4); CHLORIDE, SERUM 106 MMOL/L (96-112); CO2 (CARBON DIOXIDE) 27 MMOL/L (24-34); CREATININE 1.05 MG/DL (0.70-1.30); GFR AFRICAN AMERICAN 78 ML/MIN (>=60); GFR NON AFRICAN AMERICAN 68 ML/MIN (>=60); GLUCOSE, SERUM 107 MG/DL (60-99); PHOSPHORUS, SERUM 2.5 MG/DL (2.5-4.5); POTASSIUM, SERUM 3.8 MMOL/L (3.5-5.3); SODIUM, SERUM 143 MMOL/L (135-148)
[2016-12-10 07:26] LABS: EOSINOPHILS 6 %; EOSINOPHILS ABSOLUTE (CALC) 0.36 10/3/uL (0.0-0.53); LYMPHOCYTES 16 %; LYMPHOCYTES ABSOLUTE (CALC) 0.96 10/3/uL (0.67-4.30); MONOCYTES 8 %; MONOCYTES ABSOLUTE (CALC) 0.48 10/3/uL (0.21-1.20); SEGMENTED NEUTROPHIL (0) 70 %; TOTAL NUCLEATED CELLS 100
[2016-12-10 07:27] LABS: PLATELET ESTIMATE ADQ (ADEQUATE); POLYCHROMASIA 1+ (2-5/OIF) (0-1/OIF)
[2016-12-11 04:18] LABS: HEMATOCRIT 28.5 % (40.0-51.0); HEMOGLOBIN 9.9 g/dL (13.6-17.8); MEAN CORPUS HGB CONC 34.7 g/dL (32.0-36.0); MEAN CORPUSCULAR HEMOGLOB 30.3 pg (26.0-34.0); MEAN CORPUSCULAR VOLUME 87.2 fL (80-100); MEAN PLATELET VOLUME 8.7 fL (9.2-13.0); PLATELET COUNT 252 10/3/uL (150-400); RED CELL COUNT 3.27 10/6/uL (4.7-6.1); WHITE BLOOD CELLS 5.1 10/3/uL (4.5-10.5)
[2016-12-11 04:20] LABS: MANUAL DIFF YES %
[2016-12-11 04:34] LABS: BUN (BLOOD UREA NITROGEN) 9 MG/DL (6-23); CALCIUM, SERUM 8.6 MG/DL (8.5-10.4); CHLORIDE, SERUM 105 MMOL/L (96-112); CO2 (CARBON DIOXIDE) 26 MMOL/L (24-34); CREATININE 0.97 MG/DL (0.70-1.30); GFR AFRICAN AMERICAN 86 ML/MIN (>=60); GFR NON AFRICAN AMERICAN 74 ML/MIN (>=60); GLUCOSE, SERUM 121 MG/DL (60-99); POTASSIUM, SERUM 3.8 MMOL/L (3.5-5.3); SODIUM, SERUM 139 MMOL/L (135-148)
[2016-12-11 04:58] LABS: EOSINOPHILS 7 %; EOSINOPHILS ABSOLUTE (CALC) 0.36 10/3/uL (0.0-0.53); LYMPHOCYTES 12 %; LYMPHOCYTES ABSOLUTE (CALC) 0.36 10/3/uL (0.67-4.30); MONOCYTES 17 %; MONOCYTES ABSOLUTE (CALC) 0.87 10/3/uL (0.21-1.20); NEUTROPHILS ABSOLUTE (CALC) 3.52 10/3/uL (2.02-8.40); PLATELET ESTIMATE ADQ (ADEQUATE); RBC MORPHOLOGY NORM (NORMAL); SEGMENTED NEUTROPHIL (0) 64 %; TOTAL NUCLEATED CELLS 100
[2016-12-11 11:35] LABS: ALBUMIN RELAT % 39.2 %
== END 2016-12-12 16:02 | DRG 270 ==
LOC: ER 04:20 → 5NO 06:10 → CVICU 18:21 → 5NO 12-07 21:32
PROVIDERS: Hospitalist; Internal Medicine; Internal Medicine Infectious Disease; Internal Medicine Pulmonary Disease; Nurse Practitioner Family; Specialist; Thoracic Surgery (Cardiothoracic Vascular Surgery)
PROC: 02BN0ZX Excision of Pericardium, Open Approach, Diagnostic (ICD-10-PCS; 2016-12-06)
PROC: 0W9D0ZZ Drainage of Pericardial Cavity, Open Approach (ICD-10-PCS; principal; 2016-12-06 14:45)
DX: I31.3 Pericardial effusion (noninflammatory) (principal); E43 Unspecified severe protein-calorie malnutrition; B45.1 Cerebral cryptococcosis; N17.9 Acute kidney failure, unspecified; J90 Pleural effusion, not elsewhere classified; E83.42 Hypomagnesemia; R13.10 Dysphagia, unspecified; I12.9 Hypertensive chronic kidney disease with stage 1 through stage 4 chronic kidney disease, or unspecified chronic kidney disease; N18.2 Chronic kidney disease, stage 2 (mild); E87.6 Hypokalemia; E78.5 Hyperlipidemia, unspecified; F03.90 Unspecified dementia, unspecified severity, without behavioral disturbance, psychotic disturbance, mood disturbance, and anxiety; Z90.49 Acquired absence of other specified parts of digestive tract
CPT/HCPCS: 32555; 36415; 36600; 71010; 71020; 71035; 71275; 80048; 80053; 80069; 81001; 82150; 82465; 82805; 82945; 83615; 83735; 83880; 83986; 84100; 84134; 84155; 84156; 84157; 84165; 84166; 84443; 84478; 84484; 85025; 85379; 85610; 85730; 86850; 86900; 86901; 86920; 87015; 87040; 87070; 87075; 87086; 87102; 87116; 87205; 87449; 87641; 88112; 88305; 89051; 93005; 93308; 93321; 94640; 97161-GP; 99285; A9270-GY; G8978-CK-GP; G8979-CJ-GP; J0360; J0690; J1170; J1940; J2250; J2370; J2710; J3010; Q9967